=== PATIENT | male | born 1955 | race Caucasian/White ===

== ENCOUNTER 2018-02-20 12:26 | Emergency (ER) | payer MEDICARE, MEDICAID ==
[~2018-02-20] VITALS: Ht 182.9 cm; Wt 79.5 kg
[2018-02-20 13:06] VITALS: BP 115/67
[2018-02-20] MEDS ORDERED: PERM60CR19 TP (13:24)
== END 2018-02-20 13:51 | disposition home or self-care (01) ==
LOC: ER 12:27
DX: S80.862A Insect bite (nonvenomous), left lower leg, initial encounter (principal); S80.861A Insect bite (nonvenomous), right lower leg, initial encounter; S60.562A Insect bite (nonvenomous) of left hand, initial encounter; S60.561A Insect bite (nonvenomous) of right hand, initial encounter; F17.200 Nicotine dependence, unspecified, uncomplicated; Z59.0 Homelessness; Z79.899 Other long term (current) drug therapy; W57.XXXA Bitten or stung by nonvenomous insect and other nonvenomous arthropods, initial encounter; Y93.89 Activity, other specified; Y92.89 Other specified places as the place of occurrence of the external cause; Y99.8 Other external cause status
CPT/HCPCS: 99282; 99283

== ENCOUNTER 2018-02-26 17:34 | Inpatient (IN) | payer MEDICARE, MEDICAID ==
[~2018-02-26] VITALS: Ht 182.9 cm; Wt 86.4 kg
[~2018-02-26 17:34] MED LIST: PERM60CR19 TP
[2018-02-26] MEDS ORDERED: normal saline 1000ML IV soln IV ONE (18:50)
[2018-02-26] MEDS ORDERED: piperacillin/tazo 3.375gm/50ml 50 ML IV ONE (18:50)
[2018-02-26] MEDS ORDERED: vancomycin/NS 1 GM ADD-VANTAGE 250 ML IV ONE (18:50)
[2018-02-26] MEDS ORDERED: LIDOcaine 1.5% w/epinephrine 1:200,000 5ml ampul IJ ONE (18:55)
[2018-02-26] MEDS ORDERED: fentaNYL/PF 50MCG/1 ML 2ML syringe IV ONE (18:55)
[2018-02-26] MEDS ORDERED: ketorolac trometh. 30mg/ml inj. IV ONE (18:55)
[2018-02-26] MEDS ORDERED: TETanus/Pertussis (Acell)/Diphther VAC/PF (Tdap-Adult) 0.5ml syringe IM ONE (18:55)
[2018-02-26] MEDS ORDERED: LIDOcaine 1% w/epiNEPHrine 1:200,000 30ml vial ONE (18:58)
[2018-02-26] MEDS ORDERED: LIDOcaine 1% w/EPI 1:100,000 30ml vial (MDV) IJ ONE (19:10)
[2018-02-26 19:17] LABS: BASOPHILS % (AUTO) 0 % (0-1); EOSINOPHILS # (AUTO) 0.3 X10'3 (0-0.9); EOSINOPHILS % (AUTO) 1.2 % (0-6); HEMATOCRIT 38.6 % (42.0-52.0); HEMOGLOBIN 12.9 g/dl (14.0-17.9); LYMPHOCYTES # (AUTO) 0.8 X10'3 (1.1-4.8); LYMPHOCYTES % (AUTO) 2.6 % (21-51); MEAN CORPUSCULAR HEMOGLOBIN 31.1 PG (27.0-31.0); MEAN CORPUSCULAR HGB CONC 33.3 % (33.0-36.5); MEAN CORPUSCULAR VOLUME 93.6 FL (78-98); MEAN PLATELET VOLUME 6.7 FL (7.4-10.4); MONOCYTES # (AUTO) 1.5 X10'3 (0-0.9); MONOCYTES % (AUTO) 5.2 % (2-12); NEUTROPHILS # (AUTO) 26.6 X10'3 (1.8-7.7); PLATELET COUNT 413 X10'3 (140-440); RED BLOOD COUNT 4.13 X10'6 (4.70-6.10); RED CELL DISTRIBUTION WIDTH 15.3 % (11.5-14.5)
[2018-02-26 19:23] LABS: WHITE BLOOD COUNT 29.3 X10'3 (4.5-11.0)
[2018-02-26 19:32] LABS: INR 1.2 INR; PARTIAL THROMBOPLASTIN TIME 30 SECONDS (22-32); PROTHROMBIN TIME 11.7 SECONDS (9.0-12.0)
[2018-02-26 19:33] LABS: ALANINE AMINOTRANSFERASE 33 U/L (12-78); ALBUMIN 2.3 G/DL (3.4-5.0); ALBUMIN/GLOBULIN RATIO 0.5 (1.1-1.5); ALKALINE PHOSPHATASE 114 IU/L (46-116); ANION GAP 7 (8-16); ASPARTATE AMINO TRANSFERASE 52 U/L (10-37); BILIRUBIN,TOTAL 0.7 MG/DL (0.1-1.0); BLOOD UREA NITROGEN 7 MG/DL (7-18); BUN/CREATININE RATIO 8.6 (5.4-32.0); CHLORIDE 90 MMOL/L (99-107); CREATININE 0.81 MG/DL (0.60-1.10); GLUCOSE 136 MG/DL (70-104); MAGNESIUM 1.9 MG/DL (1.5-2.4); POTASSIUM 3.4 MMOL/L (3.5-5.1); SODIUM 125 MMOL/L (135-145); TOTAL CARBON DIOXIDE 28.3 MMOL/L (24-32); eGFR > 90 ML/MIN
[2018-02-26] MEDS ORDERED: iohexol 300mg/ml 100ml inj. ONE (19:41)
[2018-02-26] MEDS ORDERED: NO HOME MEDS (20:05)
[2018-02-26 20:17] LABS: CLARITY,URINE CLEAR (Clear); COLOR,URINE YELLOW (Yellow); GLUCOSE, URINE NEGATIVE (Neg); KETONES,URINE NEGATIVE (Neg); LEUKOCYTE ESTERASE ,URINE TRACE (Neg); NITRITES, URINE NEGATIVE (Neg); OCCULT BLOOD,URINE LARGE (Neg); PROTEIN,URINE NEGATIVE (Neg)
[2018-02-26 20:20] LABS: UA COLLECTION TYPE CLN CATCH MIDSTREAM
[2018-02-26 20:27] LABS: URINE AMPHETAMINE SCREEN POSITIVE (Neg); URINE BARBITUATE SCREEN NEGATIVE (Neg); URINE BENZODIAZEPINES SCREEN NEGATIVE (Neg); URINE CANNABINOID SCREEN POSITIVE (Neg); URINE COCAINE SCREEN NEGATIVE (Neg); URINE METHADONE SCREEN NEGATIVE (Neg); URINE OPIATE SCREEN NEGATIVE (Neg); URINE PHENCYCLIDINE SCREEN NEGATIVE (Neg)
[2018-02-26 20:35] LABS: BACTERIA,URINE FEW /HPF (Neg); WBC,URINE 0-4 /HPF (0-4)
[2018-02-26 20:36] LABS: SQUAMOUS EPITHELIAL CELL,UR FEW /LPF (FEW)
[2018-02-26] MEDS ORDERED: temazepam 15mg capsule PO PRN (21:00)
[2018-02-26 21:05] LABS: PLATELET ESTIMATE NORMAL; TOTAL CELLS COUNTED 100
[2018-02-26] MEDS ORDERED: HYDROmorphone 1 mg/ml syringe IV PRN (21:15)
[2018-02-26] MEDS ORDERED: mag hydrox/Alum hydrox/simeth 30ml oral suspension PO PRN (21:15)
[2018-02-26] MEDS ORDERED: diphenhydrAMINE 50 mg/ml inj IV PRN (21:15)
[2018-02-26] MEDS ORDERED: magnesium hydroxide 30ml (MOM) UD suspension PO PRN (21:15)
[2018-02-26] MEDS ORDERED: acetaminophen 650mg rectal suppository RC PRN (21:15)
[2018-02-26] MEDS ORDERED: ondansetron/PF 4mg/2ml inj IV PRN (21:15)
[2018-02-26] MEDS ORDERED: bisacodyl 10mg suppository rectal RC PRN (21:15)
[2018-02-26] MEDS ORDERED: metoclopramide 5 mg/ml inj IV PRN (21:15)
[2018-02-26] MEDS ORDERED: morphine 2 MG/ML inj. syringe IV PRN ×2 (21:15)
[2018-02-26] MEDS ORDERED: acetaminophen 325mg tablet PO PRN ×2 (21:15)
[2018-02-26] MEDS ORDERED: potassium Cl 20 mEq SR tablet PO PRN (21:20)
[2018-02-26] MEDS ORDERED: Permethrin Cream 60gm TP ONE (21:20)
[2018-02-26 21:47] LABS: PHOSPHORUS 3.2 MG/DL (2.3-4.5)
[2018-02-26 22:15] VITALS: BP 103/58
[2018-02-26] MEDS: potassium Cl 20mEq in NS 1,000 ML IV SCH (22:55)
[2018-02-27] MEDS: piperacillin/tazo 4.5gm/100ml 100 ML IV SCH ×3 (05:05→19:44)
[2018-02-27 06:06] LABS: BASOPHILS % (AUTO) 0 % (0-1); EOSINOPHILS # (AUTO) 0.5 X10'3 (0-0.9); EOSINOPHILS % (AUTO) 1.8 % (0-6); HEMATOCRIT 34.8 % (42.0-52.0); HEMOGLOBIN 11.5 g/dl (14.0-17.9); LYMPHOCYTES # (AUTO) 0.8 X10'3 (1.1-4.8); MEAN CORPUSCULAR HEMOGLOBIN 31.2 PG (27.0-31.0); MEAN CORPUSCULAR VOLUME 94.7 FL (78-98); MEAN PLATELET VOLUME 7.1 FL (7.4-10.4); MONOCYTES # (AUTO) 1.2 X10'3 (0-0.9); MONOCYTES % (AUTO) 4.4 % (2-12); NEUTROPHILS # (AUTO) 24.7 X10'3 (1.8-7.7); NEUTROPHILS % (AUTO) 90.8 % (42-75); PLATELET COUNT 369 X10'3 (140-440); RED BLOOD COUNT 3.68 X10'6 (4.70-6.10); RED CELL DISTRIBUTION WIDTH 15.7 % (11.5-14.5)
[2018-02-27 06:10] LABS: WHITE BLOOD COUNT 27.3 X10'3 (4.5-11.0)
[2018-02-27 06:22] LABS: ANISOCYTOSIS 1+; PLATELET ESTIMATE NORMAL; TOTAL CELLS COUNTED 100; TOXIC GRANULATION 1+
[2018-02-27 06:26] LABS: ALANINE AMINOTRANSFERASE 28 U/L (12-78); ALBUMIN 1.8 G/DL (3.4-5.0); ALBUMIN/GLOBULIN RATIO 0.4 (1.1-1.5); ALKALINE PHOSPHATASE 111 IU/L (46-116); ANION GAP 7 (8-16); ASPARTATE AMINO TRANSFERASE 50 U/L (10-37); BILIRUBIN,TOTAL 0.8 MG/DL (0.1-1.0); BLOOD UREA NITROGEN 8 MG/DL (7-18); BUN/CREATININE RATIO 11.8 (5.4-32.0); CALCIUM 7.6 MG/DL (8.5-10.1); CHLORIDE 100 MMOL/L (99-107); CREATININE 0.68 MG/DL (0.60-1.10); GLUCOSE 90 MG/DL (70-104); POTASSIUM 3.3 MMOL/L (3.5-5.1); SODIUM 133 MMOL/L (135-145); TOTAL PROTEIN 5.9 G/DL (6.4-8.2); eGFR > 90 ML/MIN
[2018-02-27 06:44] VITALS: BP 103/70
[2018-02-27] MEDS: potassium Cl 20mEq in NS 1,000 ML IV SCH ×2 (07:11→11:54)
[2018-02-27] MEDS: pantoprazole 40mg Tablet.DR PO SCH (07:43)
[2018-02-27] MEDS: docusate sod 100mg capsule PO SCH ×2 (07:43→19:43)
[2018-02-27] MEDS: HYDROcodone/acetaminophen 10/325mg tab PO PRN ×2 (07:50→19:44)
[2018-02-27] MEDS ORDERED: vancomycin/NS 1 GM ADD-VANTAGE 250 ML IV SCH (08:00)
[2018-02-27] MEDS: potassium Cl 20 mEq SR tablet PO PRN ×2 (08:00→19:43)
[2018-02-27 10:58] VITALS: BP 94/55
[2018-02-27 12:11] VITALS: BP 106/56
[2018-02-27] MEDS ORDERED: Ivermectin 3mg tablet PO SCH (15:35)
[2018-02-27] MEDS ORDERED: TETANUS IMMUNE GLOBULIN 250 UNIT IMVAC ONE (15:40)
[2018-02-27 18:00] VITALS: BP 114/64
[2018-02-27] MEDS: lactobacillus rhamnosus 10,000 MMU CELLS/CAPSULE PO SCH (19:43)
[2018-02-27] MEDS: vancomycin inj 1,250 MG in normal saline 250ml IV soln 250 ML IV SCH (19:44)
[2018-02-27] MEDS: diphenhydrAMINE 25mg capsule PO PRN (21:16)
[2018-02-27] MEDS: Ivermectin 3mg tablet PO SCH (21:17)
[2018-02-27 22:00] VITALS: BP 109/63
[2018-02-28] MEDS: HYDROcodone/acetaminophen 10/325mg tab PO PRN ×5 (02:12→23:49)
[2018-02-28] MEDS: potassium Cl 20 mEq SR tablet PO PRN (02:12)
[2018-02-28] MEDS: potassium Cl 20mEq in NS 1,000 ML IV SCH ×2 (02:13→13:19)
[2018-02-28] MEDS: piperacillin/tazo 4.5gm/100ml 100 ML IV SCH ×3 (04:22→20:16)
[2018-02-28] MEDS: diphenhydrAMINE 25mg capsule PO PRN ×2 (04:22→20:15)
[2018-02-28 06:11] LABS: BASOPHILS % (AUTO) 0.1 % (0-1); EOSINOPHILS # (AUTO) 0.4 X10'3 (0-0.9); EOSINOPHILS % (AUTO) 2.3 % (0-6); HEMATOCRIT 34.1 % (42.0-52.0); HEMOGLOBIN 11.4 g/dl (14.0-17.9); LYMPHOCYTES # (AUTO) 1.1 X10'3 (1.1-4.8); LYMPHOCYTES % (AUTO) 7.1 % (21-51); MEAN CORPUSCULAR HEMOGLOBIN 31.7 PG (27.0-31.0); MEAN CORPUSCULAR HGB CONC 33.3 % (33.0-36.5); MEAN CORPUSCULAR VOLUME 95.3 FL (78-98); MONOCYTES # (AUTO) 0.7 X10'3 (0-0.9); MONOCYTES % (AUTO) 4.7 % (2-12); NEUTROPHILS # (AUTO) 13.1 X10'3 (1.8-7.7); NEUTROPHILS % (AUTO) 85.8 % (42-75); PLATELET COUNT 357 X10'3 (140-440); RED BLOOD COUNT 3.58 X10'6 (4.70-6.10); RED CELL DISTRIBUTION WIDTH 15.7 % (11.5-14.5); WHITE BLOOD COUNT 15.3 X10'3 (4.5-11.0)
[2018-02-28 06:31] LABS: ALANINE AMINOTRANSFERASE 23 U/L (12-78); ALBUMIN 1.5 G/DL (3.4-5.0); ALBUMIN/GLOBULIN RATIO 0.4 (1.1-1.5); ALKALINE PHOSPHATASE 104 IU/L (46-116); ANION GAP 5 (8-16); ASPARTATE AMINO TRANSFERASE 33 U/L (10-37); BILIRUBIN,TOTAL 0.4 MG/DL (0.1-1.0); BLOOD UREA NITROGEN 13 MG/DL (7-18); BUN/CREATININE RATIO 14.9 (5.4-32.0); CALCIUM 7.5 MG/DL (8.5-10.1); CHLORIDE 102 MMOL/L (99-107); CREATININE 0.87 MG/DL (0.60-1.10); GLUCOSE 113 MG/DL (70-104); SODIUM 136 MMOL/L (135-145); TOTAL CARBON DIOXIDE 29.2 MMOL/L (24-32); TOTAL PROTEIN 5.4 G/DL (6.4-8.2); eGFR 90 ML/MIN
[2018-02-28 07:00] VITALS: BP 100/62
[2018-02-28] MEDS: vancomycin inj 1,250 MG in normal saline 250ml IV soln 250 ML IV SCH ×2 (07:35→20:22)
[2018-02-28] MEDS: lactobacillus rhamnosus 10,000 MMU CELLS/CAPSULE PO SCH ×2 (07:46→20:15)
[2018-02-28] MEDS: pantoprazole 40mg Tablet.DR PO SCH (07:46)
[2018-02-28] MEDS: docusate sod 100mg capsule PO SCH ×2 (07:47→20:15)
[2018-02-28] MEDS ORDERED: pneumococcal 23-VAL P-sac vacc 25 mcg/0.5ml vial IMVAC ONE (10:00)
[2018-02-28 10:57] VITALS: BP 112/68
[2018-02-28] MEDS: HYDROmorphone 1 mg/ml syringe IV PRN (14:56)
[2018-02-28] MEDS ORDERED: haloperidol lactate 5mg/ml inj IM PRN (16:15)
[2018-02-28] MEDS ORDERED: dextrose 50%-water 50ml dispensing syringe IV PRN (16:15)
[2018-02-28] MEDS ORDERED: haloperidol 5mg tablet PO PRN (16:15)
[2018-02-28] MEDS ORDERED: LORazepam 2 mg/ml vial IV PRN (16:15)
[2018-02-28 17:00] VITALS: BP 108/70
[2018-02-28] MEDS: folic acid 1mg tablet PO SCH (17:49)
[2018-02-28] MEDS: thiamine 100mg tablet PO SCH (17:49)
[2018-02-28] MEDS: multivitamins, therapeutics tablet PO SCH (17:49)
[2018-02-28 22:00] VITALS: BP 103/73
[2018-03-01] MEDS: piperacillin/tazo 4.5gm/100ml 100 ML IV SCH ×2 (03:34→12:18)
[2018-03-01] MEDS: HYDROcodone/acetaminophen 10/325mg tab PO PRN ×4 (03:35→22:05)
[2018-03-01 06:00] VITALS: BP 143/75
[2018-03-01] MEDS ORDERED: VANCOMYCIN LEVEL IV ONE ×2 (07:30→19:30)
[2018-03-01] MEDS: pantoprazole 40mg Tablet.DR PO SCH (07:49)
[2018-03-01] MEDS: lactobacillus rhamnosus 10,000 MMU CELLS/CAPSULE PO SCH ×2 (07:49→20:00)
[2018-03-01] MEDS: docusate sod 100mg capsule PO SCH ×2 (07:49→20:00)
[2018-03-01] MEDS: folic acid 1mg tablet PO SCH (07:49)
[2018-03-01] MEDS: multivitamins, therapeutics tablet PO SCH (07:49)
[2018-03-01] MEDS: thiamine 100mg tablet PO SCH (07:49)
[2018-03-01] MEDS: vancomycin inj 1,250 MG in normal saline 250ml IV soln 250 ML IV SCH (07:51)
[2018-03-01 09:39] LABS: BASOPHILS % (AUTO) 0.3 % (0-1); EOSINOPHILS # (AUTO) 0.2 X10'3 (0-0.9); HEMOGLOBIN 11.8 g/dl (14.0-17.9); LYMPHOCYTES # (AUTO) 1.1 X10'3 (1.1-4.8); LYMPHOCYTES % (AUTO) 15.3 % (21-51); MEAN CORPUSCULAR HGB CONC 31.9 % (33.0-36.5); MEAN PLATELET VOLUME 7.1 FL (7.4-10.4); MONOCYTES # (AUTO) 0.4 X10'3 (0-0.9); MONOCYTES % (AUTO) 5.9 % (2-12); NEUTROPHILS # (AUTO) 5.6 X10'3 (1.8-7.7); NEUTROPHILS % (AUTO) 75.5 % (42-75); PLATELET COUNT 401 X10'3 (140-440); RED BLOOD COUNT 3.82 X10'6 (4.70-6.10); RED CELL DISTRIBUTION WIDTH 15.9 % (11.5-14.5); WHITE BLOOD COUNT 7.4 X10'3 (4.5-11.0)
[2018-03-01 10:00] VITALS: BP 117/59
[2018-03-01 10:00] LABS: ALANINE AMINOTRANSFERASE 31 U/L (12-78); ALBUMIN 1.6 G/DL (3.4-5.0); ALBUMIN/GLOBULIN RATIO 0.4 (1.1-1.5); ALKALINE PHOSPHATASE 153 IU/L (46-116); ANION GAP 6 (8-16); ASPARTATE AMINO TRANSFERASE 64 U/L (10-37); BILIRUBIN,TOTAL 0.4 MG/DL (0.1-1.0); BLOOD UREA NITROGEN 10 MG/DL (7-18); BUN/CREATININE RATIO 11.6 (5.4-32.0); CALCIUM 7.7 MG/DL (8.5-10.1); CHLORIDE 100 MMOL/L (99-107); CREATININE 0.86 MG/DL (0.60-1.10); GLUCOSE 108 MG/DL (70-104); POTASSIUM 4.1 MMOL/L (3.5-5.1); SODIUM 135 MMOL/L (135-145); TOTAL CARBON DIOXIDE 29.2 MMOL/L (24-32); eGFR > 90 ML/MIN
[2018-03-01] MEDS: HYDROmorphone 1 mg/ml syringe IV PRN (15:00)
[2018-03-01 18:00] VITALS: BP 126/66
[2018-03-01 22:00] VITALS: BP 127/76
[2018-03-02] VITALS (15 sets, daily range): BP systolic 106–152; BP diastolic 41–89
[2018-03-02] MEDS: HYDROcodone/acetaminophen 5mg/325mg tablet PO PRN (04:35)
[2018-03-02 06:01] LABS: BASOPHILS % (AUTO) 0.3 % (0-1); EOSINOPHILS # (AUTO) 0.2 X10'3 (0-0.9); EOSINOPHILS % (AUTO) 2.7 % (0-6); HEMATOCRIT 36.6 % (42.0-52.0); HEMOGLOBIN 12.1 g/dl (14.0-17.9); LYMPHOCYTES # (AUTO) 1.2 X10'3 (1.1-4.8); LYMPHOCYTES % (AUTO) 15.4 % (21-51); MEAN CORPUSCULAR HEMOGLOBIN 31.1 PG (27.0-31.0); MEAN CORPUSCULAR VOLUME 94.3 FL (78-98); MEAN PLATELET VOLUME 6.8 FL (7.4-10.4); MONOCYTES # (AUTO) 0.6 X10'3 (0-0.9); MONOCYTES % (AUTO) 7.7 % (2-12); NEUTROPHILS # (AUTO) 5.8 X10'3 (1.8-7.7); NEUTROPHILS % (AUTO) 73.9 % (42-75); PLATELET COUNT 422 X10'3 (140-440); RED BLOOD COUNT 3.88 X10'6 (4.70-6.10); RED CELL DISTRIBUTION WIDTH 15.6 % (11.5-14.5); WHITE BLOOD COUNT 7.9 X10'3 (4.5-11.0)
[2018-03-02 06:14] LABS: ALANINE AMINOTRANSFERASE 25 U/L (12-78); ALBUMIN 1.8 G/DL (3.4-5.0); ALBUMIN/GLOBULIN RATIO 0.4 (1.1-1.5); ALKALINE PHOSPHATASE 132 IU/L (46-116); ANION GAP 3 (8-16); ASPARTATE AMINO TRANSFERASE 35 U/L (10-37); BILIRUBIN,TOTAL 0.3 MG/DL (0.1-1.0); BLOOD UREA NITROGEN 10 MG/DL (7-18); BUN/CREATININE RATIO 11.8 (5.4-32.0); CALCIUM 8.3 MG/DL (8.5-10.1); CHLORIDE 100 MMOL/L (99-107); CREATININE 0.85 MG/DL (0.60-1.10); GLUCOSE 116 MG/DL (70-104); POTASSIUM 4.7 MMOL/L (3.5-5.1); SODIUM 135 MMOL/L (135-145); TOTAL CARBON DIOXIDE 32.5 MMOL/L (24-32); TOTAL PROTEIN 6.4 G/DL (6.4-8.2); eGFR > 90 ML/MIN
[2018-03-02] MEDS: multivitamins, therapeutics tablet PO SCH (07:31)
[2018-03-02] MEDS: thiamine 100mg tablet PO SCH (07:32)
[2018-03-02] MEDS: lactobacillus rhamnosus 10,000 MMU CELLS/CAPSULE PO SCH ×2 (07:32→20:55)
[2018-03-02] MEDS: docusate sod 100mg capsule PO SCH ×2 (07:32→20:56)
[2018-03-02] MEDS: levoFLOXACIN 500mg tablet PO SCH ×2 (07:32→11:00)
[2018-03-02] MEDS: folic acid 1mg tablet PO SCH (07:32)
[2018-03-02] MEDS: pantoprazole 40mg Tablet.DR PO SCH (07:32)
[2018-03-02] MEDS: HYDROcodone/acetaminophen 10/325mg tab PO PRN ×2 (11:12→17:23)
[2018-03-02] MEDS ORDERED: sevoflurane 250ml liquid IH ONE (15:56)
[2018-03-02] MEDS ORDERED: ringers solution, lacted 1,000 ML IV SCH (15:57)
[2018-03-02] MEDS ORDERED: fentaNYL /PF 50mcg/ml 5ml ampule ONE (15:59)
[2018-03-02] MEDS ORDERED: midazolam 2 mg/2 ml injection ONE (15:59)
[2018-03-02] MEDS ORDERED: morphine 4 MG/ML inj SYRINge IV PRN ×2 (16:00)
[2018-03-02] MEDS ORDERED: ondansetron/PF 4mg/2ml inj IV PRN (16:00)
[2018-03-02] MEDS ORDERED: proCHLORperazine 10 MG/2 ml inj IV PRN (16:00)
[2018-03-02] MEDS ORDERED: meperidine/PF 25mg/ml syringe IV PRN ×3 (16:00)
[2018-03-02] MEDS ORDERED: propofol inj 20 ML IV ONE (16:06)
[2018-03-02] MEDS ORDERED: LIDOcaine 2% (20mg/ml) 5ml vial ONE (16:06)
[2018-03-02] MEDS ORDERED: LORazepam 1 MG tablet PO PRN (16:15)
[2018-03-02] MEDS ORDERED: LORazepam 2 mg/ml vial IV PRN (16:15)
[2018-03-02] MEDS ORDERED: ondansetron/PF 4mg/2ml inj ONE (16:46)
[2018-03-02] MEDS: piperacillin/tazo 3.375gm/50ml 50 ML IV SCH (20:56)
[2018-03-03] MEDS: piperacillin/tazo 3.375gm/50ml 50 ML IV SCH ×4 (01:43→19:44)
[2018-03-03] MEDS: HYDROcodone/acetaminophen 10/325mg tab PO PRN ×5 (01:54→19:45)
[2018-03-03 02:00] VITALS: BP 142/79
[2018-03-03 06:00] VITALS: BP 155/75
[2018-03-03 06:09] LABS: BASOPHILS % (AUTO) 0.2 % (0-1); EOSINOPHILS # (AUTO) 0.3 X10'3 (0-0.9); HEMATOCRIT 35.8 % (42.0-52.0); HEMOGLOBIN 11.8 g/dl (14.0-17.9); LYMPHOCYTES # (AUTO) 1.1 X10'3 (1.1-4.8); LYMPHOCYTES % (AUTO) 11.3 % (21-51); MEAN CORPUSCULAR HEMOGLOBIN 31.3 PG (27.0-31.0); MEAN CORPUSCULAR HGB CONC 32.9 % (33.0-36.5); MEAN CORPUSCULAR VOLUME 95.1 FL (78-98); MONOCYTES # (AUTO) 0.8 X10'3 (0-0.9); MONOCYTES % (AUTO) 8.6 % (2-12); NEUTROPHILS # (AUTO) 7.2 X10'3 (1.8-7.7); NEUTROPHILS % (AUTO) 76.9 % (42-75); PLATELET COUNT 429 X10'3 (140-440); RED BLOOD COUNT 3.77 X10'6 (4.70-6.10); RED CELL DISTRIBUTION WIDTH 15.7 % (11.5-14.5); WHITE BLOOD COUNT 9.3 X10'3 (4.5-11.0)
[2018-03-03 06:35] LABS: ALBUMIN 1.6 G/DL (3.4-5.0); ANION GAP 6 (8-16); BILIRUBIN,TOTAL 0.2 MG/DL (0.1-1.0); BLOOD UREA NITROGEN 11 MG/DL (7-18); BUN/CREATININE RATIO 11.7 (5.4-32.0); CALCIUM 7.8 MG/DL (8.5-10.1); CHLORIDE 100 MMOL/L (99-107); CREATININE 0.94 MG/DL (0.60-1.10); GLUCOSE 133 MG/DL (70-104); POTASSIUM 4.2 MMOL/L (3.5-5.1); SODIUM 135 MMOL/L (135-145); TOTAL CARBON DIOXIDE 29.3 MMOL/L (24-32); TOTAL PROTEIN 6.2 G/DL (6.4-8.2); eGFR 82 ML/MIN
[2018-03-03 06:36] LABS: ALANINE AMINOTRANSFERASE 20 U/L (12-78); ALBUMIN/GLOBULIN RATIO 0.3 (1.1-1.5); ALKALINE PHOSPHATASE 119 IU/L (46-116); ASPARTATE AMINO TRANSFERASE 24 U/L (10-37)
[2018-03-03] MEDS: lactobacillus rhamnosus 10,000 MMU CELLS/CAPSULE PO SCH ×2 (07:35→19:44)
[2018-03-03] MEDS: docusate sod 100mg capsule PO SCH ×2 (07:35→19:44)
[2018-03-03] MEDS: pantoprazole 40mg Tablet.DR PO SCH (07:35)
[2018-03-03] MEDS: thiamine 100mg tablet PO SCH (07:35)
[2018-03-03] MEDS: multivitamins, therapeutics tablet PO SCH (07:35)
[2018-03-03] MEDS: folic acid 1mg tablet PO SCH (07:36)
[2018-03-03 10:00] VITALS: BP 126/79
[2018-03-03 17:00] VITALS: BP 135/71
[2018-03-03 22:00] VITALS: BP 117/68
[2018-03-04] MEDS: HYDROcodone/acetaminophen 10/325mg tab PO PRN ×3 (01:43→10:16)
[2018-03-04] MEDS: piperacillin/tazo 3.375gm/50ml 50 ML IV SCH ×4 (01:43→19:57)
[2018-03-04 06:00] VITALS: BP 126/71
[2018-03-04] MEDS: pantoprazole 40mg Tablet.DR PO SCH (08:09)
[2018-03-04] MEDS: docusate sod 100mg capsule PO SCH ×2 (08:09→19:57)
[2018-03-04] MEDS: folic acid 1mg tablet PO SCH (08:09)
[2018-03-04] MEDS: thiamine 100mg tablet PO SCH (08:09)
[2018-03-04] MEDS: lactobacillus rhamnosus 10,000 MMU CELLS/CAPSULE PO SCH ×2 (08:09→19:57)
[2018-03-04] MEDS: multivitamins, therapeutics tablet PO SCH (08:09)
[2018-03-04 10:00] VITALS: BP 106/55
[2018-03-04] MEDS ORDERED: LORazepam 2 mg/ml vial IV PRN (16:15)
[2018-03-04] MEDS ORDERED: LORazepam 1 MG tablet PO PRN (16:15)
[2018-03-04 18:00] VITALS: BP 145/66
[2018-03-04] MEDS: HYDROcodone/acetaminophen 5mg/325mg tablet PO PRN (19:58)
[2018-03-04 21:38] VITALS: BP 109/70
[2018-03-05] MEDS: piperacillin/tazo 3.375gm/50ml 50 ML IV SCH ×2 (01:37→08:54)
[2018-03-05 05:00] VITALS: BP 114/72
[2018-03-05] MEDS ORDERED: Permethrin Cream 60gm TP PRN (08:00)
[2018-03-05] MEDS: docusate sod 100mg capsule PO SCH ×2 (08:54→19:44)
[2018-03-05] MEDS: folic acid 1mg tablet PO SCH (08:54)
[2018-03-05] MEDS: thiamine 100mg tablet PO SCH (08:54)
[2018-03-05] MEDS: pantoprazole 40mg Tablet.DR PO SCH (08:55)
[2018-03-05] MEDS: lactobacillus rhamnosus 10,000 MMU CELLS/CAPSULE PO SCH ×2 (08:55→19:44)
[2018-03-05] MEDS: multivitamins, therapeutics tablet PO SCH (08:55)
[2018-03-05] MEDS: HYDROcodone/acetaminophen 10/325mg tab PO PRN ×2 (09:04→19:47)
[2018-03-05 10:00] VITALS: BP 133/64
[2018-03-05] MEDS: ceFAZolin 1GM/D5W- ADD-VANTAGE 50 ML IV SCH (17:38)
[2018-03-05 18:00] VITALS: BP 141/81
[2018-03-05 22:00] VITALS: BP 130/72
[2018-03-06] MEDS: ceFAZolin 1GM/D5W- ADD-VANTAGE 50 ML IV SCH (00:36)
[2018-03-06 05:00] VITALS: BP 125/77
[2018-03-06] MEDS: pantoprazole 40mg Tablet.DR PO SCH (07:30)
[2018-03-06] MEDS ORDERED: levoFLOXACIN-Levaquin 500mg/D5 100 ML IV SCH (08:25)
[2018-03-06] MEDS: folic acid 1mg tablet PO SCH (08:45)
[2018-03-06] MEDS: thiamine 100mg tablet PO SCH (08:45)
[2018-03-06] MEDS: lactobacillus rhamnosus 10,000 MMU CELLS/CAPSULE PO SCH (08:45)
[2018-03-06] MEDS: docusate sod 100mg capsule PO SCH (08:45)
[2018-03-06] MEDS: multivitamins, therapeutics tablet PO SCH (08:45)
[2018-03-06 10:00] VITALS: BP 172/69
[2018-03-06] MEDS: HYDROcodone/acetaminophen 10/325mg tab PO PRN ×2 (10:10→17:10)
[2018-03-06] MEDS ORDERED: COL100C PO (11:52)
[2018-03-06] MEDS ORDERED: HYDR-3972 PO (11:52)
[2018-03-06] MEDS ORDERED: FOLI1TAB16 PO (11:52)
[2018-03-06] MEDS ORDERED: LEVO500T2 PO (11:52)
[2018-03-06] MEDS ORDERED: THI100T PO (11:52)
[2018-03-06] MEDS: Ivermectin 3mg tablet PO SCH (17:17)
== END 2018-03-06 18:10 | disposition home health service (06) | DRG 853 ==
LOC: ER 17:34 → ORTHO 4S 22:31 → CMPBEDREQ 02-27 00:18 → ORTHO 4S 03-06 09:25
PROVIDERS: ADMIT Family Medicine; ATTEND Internal Medicine
PROC: 0X950ZZ Drainage of Left Axilla, Open Approach (ICD-10-PCS; principal; 2018-02-26)
PROC: BW241ZZ Computerized Tomography (CT Scan) of Chest and Abdomen using Low Osmolar Contrast (ICD-10-PCS; 2018-02-26)
PROC: 3E02340 Introduction of Influenza Vaccine into Muscle, Percutaneous Approach (ICD-10-PCS; 2018-02-28)
PROC: 3E0234Z Introduction of Serum, Toxoid and Vaccine into Muscle, Percutaneous Approach (ICD-10-PCS; 2018-02-28)
PROC: 0JBF0ZZ Excision of Left Upper Arm Subcutaneous Tissue and Fascia, Open Approach (ICD-10-PCS; 2018-03-02)
DX: A41.9 Sepsis, unspecified organism (principal); E43 Unspecified severe protein-calorie malnutrition; E87.1 Hypo-osmolality and hyponatremia; L02.412 Cutaneous abscess of left axilla; L03.112 Cellulitis of left axilla; B85.1 Pediculosis due to Pediculus humanus corporis; F10.10 Alcohol abuse, uncomplicated; B95.4 Other streptococcus as the cause of diseases classified elsewhere; F15.10 Other stimulant abuse, uncomplicated; E86.0 Dehydration; E87.6 Hypokalemia; B86 Scabies; F17.210 Nicotine dependence, cigarettes, uncomplicated; Z59.0 Homelessness; Z79.899 Other long term (current) drug therapy; Z68.25 Body mass index [BMI] 25.0-25.9, adult; Z71.6 Tobacco abuse counseling; Z71.41 Alcohol abuse counseling and surveillance of alcoholic
CPT/HCPCS: 10060; 36415; 71045; 71260; 80053; 80305; 81001; 82948; 83605; 83735; 83880; 84100; 84145; 85025; 85610; 85730; 87040; 87070; 87075; 87077; 87088; 87186; 90471; 90715; 90732; 93005; 96365; 96368; 96375; 99285; A6253; A6446; A7000; G0378; J0690; J1170; J1670; J1885; J1956; J2001; J2250; J2405; J2543; J2704; J3010; J3370; J3490; J7030; J7120; Q0163; Q2037; Q9967

== ENCOUNTER 2018-03-08 13:00 | Outpatient (CLI) | payer MEDICARE, MEDICAID ==
[~2018-03-08 13:00] MED LIST changes: +COL100C PO; +FOLI1TAB16 PO; +HYDR-3972 PO; +LEVO500T2 PO; +NO HOME MEDS; +THI100T PO
== END 2018-03-08 14:00 | disposition home or self-care (01) ==
LOC: WOUND CARE 13:00
PROVIDERS: ATTEND Surgery
DX: L98.492 Non-pressure chronic ulcer of skin of other sites with fat layer exposed (principal); L02.411 Cutaneous abscess of right axilla; F10.10 Alcohol abuse, uncomplicated; F17.210 Nicotine dependence, cigarettes, uncomplicated; F15.10 Other stimulant abuse, uncomplicated; Z68.25 Body mass index [BMI] 25.0-25.9, adult; Z79.899 Other long term (current) drug therapy; Z71.6 Tobacco abuse counseling
CPT/HCPCS: 97605; A4456

== ENCOUNTER 2018-03-12 09:38 | Outpatient (CLI) | payer MEDICARE, MEDICAID ==
[~2018-03-12 09:38] MED LIST changes: -NO HOME MEDS; -PERM60CR19 TP
== END 2018-03-12 11:48 | disposition home or self-care (01) ==
LOC: WOUND CARE 09:38 → EDSTATUS 10:00 → WOUND CARE 11:48
PROVIDERS: ATTEND Surgery
DX: L98.492 Non-pressure chronic ulcer of skin of other sites with fat layer exposed (principal); L02.411 Cutaneous abscess of right axilla; F10.10 Alcohol abuse, uncomplicated; F17.210 Nicotine dependence, cigarettes, uncomplicated; F15.10 Other stimulant abuse, uncomplicated; Z68.25 Body mass index [BMI] 25.0-25.9, adult; Z79.899 Other long term (current) drug therapy; Z71.6 Tobacco abuse counseling
CPT/HCPCS: 99215; A6266; A6206; A6213

== ENCOUNTER 2018-03-15 12:42 | Emergency (ER) | payer MEDICARE, MEDICAID ==
[~2018-03-15] VITALS: Ht 185.4 cm; Wt 68.0 kg
[2018-03-15 13:00] VITALS: BP 107/68
== END 2018-03-15 13:26 | disposition home or self-care (01) ==
LOC: ER 12:42
DX: L02.412 Cutaneous abscess of left axilla (principal); F17.200 Nicotine dependence, unspecified, uncomplicated; Z79.2 Long term (current) use of antibiotics; Z79.899 Other long term (current) drug therapy
CPT/HCPCS: 99281

== ENCOUNTER 2018-03-15 13:26 | Outpatient (CLI) | payer MEDICARE, MEDICAID | END 2018-03-15 13:47 | disposition home or self-care (01) | LOC: WOUND CARE 13:26 | PROVIDERS: ATTEND Surgery | DX: L98.492 Non-pressure chronic ulcer of skin of other sites with fat layer exposed (principal); L02.411 Cutaneous abscess of right axilla; F10.10 Alcohol abuse, uncomplicated; F17.210 Nicotine dependence, cigarettes, uncomplicated; F15.10 Other stimulant abuse, uncomplicated; Z68.25 Body mass index [BMI] 25.0-25.9, adult; Z79.899 Other long term (current) drug therapy; Z71.6 Tobacco abuse counseling | CPT/HCPCS: 99211; A6021; A6212; A6266 ==

== ENCOUNTER 2018-03-17 14:58 | Emergency (ER) | payer MEDICARE, MEDICAID ==
[~2018-03-17] VITALS: Ht 185.4 cm; Wt 60.0 kg
[2018-03-17 15:00] VITALS: BP 155/90
== END 2018-03-17 16:00 | disposition home or self-care (01) ==
LOC: ER 14:58
DX: L02.412 Cutaneous abscess of left axilla (principal); Z48.00 Encounter for change or removal of nonsurgical wound dressing; Z79.2 Long term (current) use of antibiotics; Z79.899 Other long term (current) drug therapy; Z59.0 Homelessness
CPT/HCPCS: 99281

== ENCOUNTER 2018-03-19 10:24 | Day surgery (SDC) | payer MEDICARE, MEDICAID | END 2018-03-19 11:49 | disposition home or self-care (01) | LOC: WOUND CARE 10:24 | PROVIDERS: ATTEND Surgery | DX: L98.492 Non-pressure chronic ulcer of skin of other sites with fat layer exposed (principal); L02.412 Cutaneous abscess of left axilla; L02.411 Cutaneous abscess of right axilla; F10.10 Alcohol abuse, uncomplicated; F17.210 Nicotine dependence, cigarettes, uncomplicated; F15.10 Other stimulant abuse, uncomplicated; Z68.25 Body mass index [BMI] 25.0-25.9, adult; Z79.899 Other long term (current) drug therapy; Z71.6 Tobacco abuse counseling | CPT/HCPCS: 97597; A6266; A6212 ==

== ENCOUNTER 2018-03-21 09:52 | Day surgery (SDC) | payer MEDICARE, MEDICAID ==
[~2018-03-21 09:52] MED LIST changes: -LEVO500T2 PO
== END 2018-03-21 10:26 | disposition home or self-care (01) ==
LOC: WOUND CARE 09:52
PROVIDERS: ATTEND Surgery
DX: L98.492 Non-pressure chronic ulcer of skin of other sites with fat layer exposed (principal); L02.412 Cutaneous abscess of left axilla; F10.10 Alcohol abuse, uncomplicated; F17.210 Nicotine dependence, cigarettes, uncomplicated; F15.10 Other stimulant abuse, uncomplicated; Z68.25 Body mass index [BMI] 25.0-25.9, adult; Z79.899 Other long term (current) drug therapy; Z71.6 Tobacco abuse counseling
CPT/HCPCS: 97597; A6266; 17250; A6212

== ENCOUNTER 2018-04-05 14:35 | Emergency (ER) | payer MEDICARE, MEDICAID ==
[~2018-04-05] VITALS: Ht 188 cm; Wt 88.6 kg
[2018-04-05 14:42] VITALS: BP 114/77
[2018-04-05] MEDS ORDERED: SULF1TAB49 PO (15:31)
[2018-04-05] MEDS ORDERED: CEPH-572 PO (15:31)
== END 2018-04-05 15:41 | disposition home or self-care (01) ==
LOC: ER 14:36
DX: L03.113 Cellulitis of right upper limb (principal); L03.114 Cellulitis of left upper limb; R23.4 Changes in skin texture; Z79.2 Long term (current) use of antibiotics; Z79.899 Other long term (current) drug therapy; Z59.0 Homelessness
CPT/HCPCS: 99283

== ENCOUNTER 2018-04-10 10:26 | Emergency (ER) | payer MEDICARE, MEDICAID ==
[~2018-04-10] VITALS: Ht 185.4 cm; Wt 73.7 kg
[~2018-04-10 10:26] MED LIST changes: +CEPH-572 PO; +SULF1TAB49 PO
[2018-04-10 10:29] VITALS: BP 127/86
== END 2018-04-10 11:13 | disposition left against medical advice (07) ==
LOC: ER 10:27
DX: M79.89 Other specified soft tissue disorders (principal); Z53.21 Procedure and treatment not carried out due to patient leaving prior to being seen by health care provider

== ENCOUNTER 2018-04-12 11:08 | Emergency (ER) | payer MEDICARE, MEDICAID ==
[~2018-04-12] VITALS: Ht 188 cm; Wt 86.4 kg
[2018-04-12 12:09] VITALS: BP 116/67
== END 2018-04-12 13:02 | disposition left against medical advice (07) ==
LOC: ER 11:09
DX: L02.412 Cutaneous abscess of left axilla (principal); Z53.21 Procedure and treatment not carried out due to patient leaving prior to being seen by health care provider

== ENCOUNTER 2018-05-31 10:56 | Emergency (ER) | payer MEDICAID, MEDICARE ==
[~2018-05-31] VITALS: Ht 185.4 cm; Wt 73.3 kg
[~2018-05-31 10:56] MED LIST changes: -CEPH-572 PO; -SULF1TAB49 PO
[2018-05-31 10:59] VITALS: BP 162/90
== END 2018-05-31 13:01 | disposition home or self-care (01) ==
LOC: ER 10:56
DX: S40.812A Abrasion of left upper arm, initial encounter (principal); G89.29 Other chronic pain; Z59.0 Homelessness; Z79.899 Other long term (current) drug therapy; Z76.0 Encounter for issue of repeat prescription; X58.XXXA Exposure to other specified factors, initial encounter; Y93.89 Activity, other specified; Y92.89 Other specified places as the place of occurrence of the external cause; Y99.8 Other external cause status
CPT/HCPCS: 99281

== ENCOUNTER 2018-06-03 16:23 | Emergency (ER) | payer MEDICARE, OTHER ==
[~2018-06-03] VITALS: Ht 186.7 cm; Wt 84.1 kg
[2018-06-03 16:37] VITALS: BP 160/101
== END 2018-06-03 17:11 | disposition home or self-care (01) ==
LOC: ER 16:23
DX: M79.605 Pain in left leg (principal); Z76.0 Encounter for issue of repeat prescription; Z79.899 Other long term (current) drug therapy; Z59.0 Homelessness
CPT/HCPCS: 99281

== ENCOUNTER 2019-01-31 14:03 | Emergency (ER) | payer MEDICARE, MEDICAID ==
[~2019-01-31] VITALS: Ht 185.4 cm; Wt 72.6 kg
[2019-01-31 14:14] VITALS: BP 144/84
== END 2019-01-31 14:55 | disposition home or self-care (01) ==
LOC: ER 14:05
DX: R45.1 Restlessness and agitation (principal); Z76.0 Encounter for issue of repeat prescription; G89.29 Other chronic pain; Z59.0 Homelessness; Z79.899 Other long term (current) drug therapy
CPT/HCPCS: 99281

== ENCOUNTER 2022-01-24 13:59 | Inpatient (IN) | payer MEDICAID, MEDICARE ==
[~2022-01-24] VITALS: Ht 185.4 cm; Wt 89.0 kg
[~2022-01-24 13:59] MED LIST changes: -FOLI1TAB16 PO; +FOLI1TAB27 PO
[2022-01-24 14:43] LABS: BASOPHILS % (AUTO) 0.1 % (0-1); EOSINOPHILS # (AUTO) 0.1 X10'3 (0-0.9); EOSINOPHILS % (AUTO) 0.8 % (0-6); HEMATOCRIT 44.3 % (42.0-52.0); HEMOGLOBIN 14.8 g/dl (14.0-17.9); LYMPHOCYTES # (AUTO) 1.5 X10'3 (1.1-4.8); LYMPHOCYTES % (AUTO) 8.5 % (21-51); MEAN CORPUSCULAR HEMOGLOBIN 32.4 PG (27.0-31.0); MEAN CORPUSCULAR HGB CONC 33.3 g/dL (33.0-36.5); MEAN CORPUSCULAR VOLUME 97.2 FL (78-98); MONOCYTES # (AUTO) 2.5 X10'3 (0-0.9); MONOCYTES % (AUTO) 14.4 % (2-12); NEUTROPHILS # (AUTO) 13.2 X10'3 (1.8-7.7); NEUTROPHILS % (AUTO) 76.2 % (42-75); PLATELET COUNT 296 X10'3 (140-440); RED BLOOD COUNT 4.56 X10'6 (4.70-6.10); RED CELL DISTRIBUTION WIDTH 13.9 % (11.5-14.5); WHITE BLOOD COUNT 17.4 X10'3 (4.5-11.0)
[2022-01-24 15:00] LABS: ALANINE AMINOTRANSFERASE 57 U/L (12-78); ALBUMIN 3.5 G/DL (3.4-5.0); ALBUMIN/GLOBULIN RATIO 0.8 (1.1-1.5); ALKALINE PHOSPHATASE 134 IU/L (46-116); ANION GAP 11 (8-16); ASPARTATE AMINO TRANSFERASE 40 U/L (10-37); BILIRUBIN,TOTAL 0.3 MG/DL (0.1-1.0); BLOOD UREA NITROGEN 16 MG/DL (7-18); BUN/CREATININE RATIO 18.6 (5.4-32.0); CALCIUM 8.9 MG/DL (8.5-10.1); CHLORIDE 101 MMOL/L (99-107); CREATININE 0.86 MG/DL (0.60-1.10); GLUCOSE 97 MG/DL (70-104); POTASSIUM 3.9 MMOL/L (3.5-5.1); SODIUM 134 MMOL/L (135-145); TOTAL CARBON DIOXIDE 21.7 MMOL/L (24-32); TOTAL PROTEIN 8.1 G/DL (6.4-8.2); eGFR 90 ML/MIN
[2022-01-24 15:15] LABS: EOSINOPHILS % (MANUAL) 1.5 % (0-6); LYMPHOCYTES % (MANUAL) 7.5 % (21-51); MONOCYTES % (MANUAL) 14.5 % (2-12); NEUTROPHILS % (MANUAL) 74.5 % (42-75); PLATELET ESTIMATE NORMAL; TOTAL CELLS COUNTED 200
[2022-01-24] MEDS ORDERED: ACET325T57 PO (16:09)
[2022-01-24] MEDS ORDERED: NAPR-996 PO (16:09)
[2022-01-24] MEDS ORDERED: ACET-2319 PO (16:10)
[2022-01-24] MEDS ORDERED: vancomycin/NS 1 GM ADD-VANTAGE 250 ML IV ONE (16:35)
[2022-01-24] MEDS ORDERED: CefTRIAXone/D5W-Rocephin 1gm 50 ML IV ONE (16:35)
[2022-01-24] MEDS ORDERED: ringers solution, lactated 1000ml IV soln IV ONE (16:35)
[2022-01-24] MEDS ORDERED: morphine 4 MG/ML inj SYRINge IV ONE (16:40)
[2022-01-24 17:31] LABS: C-REACTIVE PROTEIN 11.52 MG/DL (0.0-0.5)
--- NOTE | 2022-01-24 18:33 | NUR ---
Clay Plant Treater at bedside.
--- NOTE | 2022-01-24 18:51 | NUR ---
DR GOYAL WAS PAGED VASCULAR REPORT WAS COMPLETE AT [id number]
--- NOTE | 2022-01-24 19:29 | NUR ---
Patient is laying on gurney using urinal w/o problem, I will continue to monitor.
--- NOTE | 2022-01-24 20:38 | NUR ---
Dr. Serrano at the bedside, he gave me a verbal order for Morphine 2mg IV once.
[2022-01-24] MEDS ORDERED: morphine 2 MG/ML inj. syringe IV ONE (20:40)
[2022-01-24] MEDS ORDERED: ondansetron/PF 4mg/2ml inj IV PRN (20:45)
[2022-01-24] MEDS ORDERED: magnesium 4gm in 100ml NS 100 ML IV PRN (20:45)
[2022-01-24] MEDS: normal saline 1000ml 1,000 ML IV SCH ×2 (20:45→21:19)
[2022-01-24] MEDS ORDERED: magnesium 2GM in 50ml NS 50 ML IV PRN (20:45)
[2022-01-24] MEDS ORDERED: magnesium hydroxide 30ml (MOM) UD suspension PO PRN (20:45)
[2022-01-24] MEDS ORDERED: acetaminophen 325mg tablet PO PRN (20:45)
[2022-01-24] MEDS ORDERED: mag hydrox/Alum hydrox/simeth 30ml oral suspension PO PRN (20:45)
[2022-01-24] MEDS ORDERED: POTASSIUM BICARB 20meq eff tab 20 MEQ TABLET.EFF PO PRN ×2 (20:45)
[2022-01-24] MEDS ORDERED: potassium CL 10mEq/100ml bag 100 ML IV PRN (20:45)
[2022-01-24] MEDS ORDERED: magnesium Cl slow-release 64mg tablet PO PRN (20:45)
[2022-01-24 20:57] LABS: MAGNESIUM 2.2 MG/DL (1.5-2.4); POTASSIUM 4.6 MMOL/L (3.5-5.1)
[2022-01-24] MEDS ORDERED: vancomycin/NS 1 GM ADD-VANTAGE 250 ML X 1 DOSE IV ONE (21:25)
[2022-01-25] MEDS: morphine 2 MG/ML inj. syringe IV PRN (03:33)
[2022-01-25] MEDS: K and/or MAG REPLACEMENT MC SCH ×2 (06:43→20:00)
[2022-01-25] MEDS: docusate sod 100mg capsule PO SCH ×2 (06:44→20:30)
[2022-01-25 06:57] LABS: BASOPHILS # (AUTO) 0.1 X10'3 (0-0.2); BASOPHILS % (AUTO) 0.4 % (0-1); EOSINOPHILS # (AUTO) 0.1 X10'3 (0-0.9); EOSINOPHILS % (AUTO) 0.9 % (0-6); HEMATOCRIT 37.9 % (42.0-52.0); HEMOGLOBIN 12.6 g/dl (14.0-17.9); LYMPHOCYTES # (AUTO) 1.4 X10'3 (1.1-4.8); LYMPHOCYTES % (AUTO) 10.5 % (21-51); MEAN CORPUSCULAR HEMOGLOBIN 32.1 PG (27.0-31.0); MEAN CORPUSCULAR HGB CONC 33.2 g/dL (33.0-36.5); MEAN CORPUSCULAR VOLUME 96.6 FL (78-98); MEAN PLATELET VOLUME 6.9 FL (7.4-10.4); MONOCYTES # (AUTO) 2.3 X10'3 (0-0.9); MONOCYTES % (AUTO) 17.1 % (2-12); NEUTROPHILS # (AUTO) 9.6 X10'3 (1.8-7.7); NEUTROPHILS % (AUTO) 71.1 % (42-75); PLATELET COUNT 252 X10'3 (140-440); RED BLOOD COUNT 3.92 X10'6 (4.70-6.10); RED CELL DISTRIBUTION WIDTH 14.1 % (11.5-14.5); WHITE BLOOD COUNT 13.6 X10'3 (4.5-11.0)
[2022-01-25 07:20] LABS: ALANINE AMINOTRANSFERASE 35 U/L (12-78); ALBUMIN 2.5 G/DL (3.4-5.0); ALBUMIN/GLOBULIN RATIO 0.7 (1.1-1.5); ALKALINE PHOSPHATASE 99 IU/L (46-116); ANION GAP 8 (8-16); ASPARTATE AMINO TRANSFERASE 20 U/L (10-37); BILIRUBIN,TOTAL 0.2 MG/DL (0.1-1.0); BLOOD UREA NITROGEN 14 MG/DL (7-18); BUN/CREATININE RATIO 22.2 (5.4-32.0); CALCIUM 7.8 MG/DL (8.5-10.1); CHLORIDE 107 MMOL/L (99-107); CREATININE 0.63 MG/DL (0.60-1.10); GLUCOSE 89 MG/DL (70-104); MAGNESIUM 1.8 MG/DL (1.5-2.4); POTASSIUM 3.8 MMOL/L (3.5-5.1); SODIUM 139 MMOL/L (135-145); TOTAL CARBON DIOXIDE 24.1 MMOL/L (24-32); TOTAL PROTEIN 6.3 G/DL (6.4-8.2); eGFR > 90 ML/MIN
[2022-01-25 07:21] LABS: TOTAL CELLS COUNTED 100
[2022-01-25 07:22] LABS: PLATELET ESTIMATE NORMAL
[2022-01-25] MEDS: CefTRIAXone/D5W-Rocephin 1gm 50 ML IV SCH (08:08)
[2022-01-25] MEDS: heparin, porcine 5000 units/ml vial SQ SCH ×2 (08:08→20:31)
[2022-01-25] MEDS: HYDROcodone/acetaminophen 10/325mg tab PO PRN ×3 (08:15→20:35)
[2022-01-25] MEDS: VANCOmycin 1250MG/NS 250ml Bag 250 ML IV SCH ×2 (11:23→22:31)
--- NOTE | 2022-01-25 12:25 | NUR ---
attempt EKG, machine being used for another patient at this time. will attempt again.
[2022-01-25] MEDS ORDERED: iohexol 350MG/ML 100ml bottle IV ONE ×2 (14:52→14:53)
[2022-01-25] MEDS: normal saline 1000ml 1,000 ML IV SCH ×2 (17:13→20:22)
--- NOTE | 2022-01-25 17:30 | NUR ---
Pt. was brought to floor without RN receiving report. Transport staff stated someone had gotten report but was not able to say whom had received report on this pt. Later ED RN indicated he believed someone gave report for him. This was for a different patient. Transport staff declined to wait for RN to receive report before placing patient in room.
[2022-01-25 17:35] VITALS: BP 140/76
--- NOTE | 2022-01-25 18:41 | NUR ---
Problems reprioritized. Patient report given, questions answered & plan of care reviewed with Pat RN.
--- NOTE | 2022-01-25 19:30 | NUR ---
during assessment, pt at times asking questions that were already discussed; pt states he has short term memory; pt instructed not to get out of bed for safety reason as he'll be connected to running IV fluids; pt then repeated more than once he'll be getting up to toilet with his crutches; pt informed plan of having his bed changed to a new bed with a built in alarm as a reminder not to get out of bed Addendum: 01/26/22 at 0413 by Rita Traore RN Amended: Links added.
[2022-01-25] MEDS ORDERED: nitroGLYCERIN 0.4mg SUBLingual tab SL PRN (20:40)
[2022-01-25] MEDS ORDERED: metoprolol tartrate 1mg/ml inj IV PRN (20:40)
[2022-01-25] MEDS ORDERED: regadenoson 0.4mg/5ml syringe IV PRN (20:40)
[2022-01-25] MEDS ORDERED: aminophylline 500mg/20ml vial IV PRN (20:40)
[2022-01-25 22:00] VITALS: BP 124/66
[2022-01-26] VITALS (12 sets, daily range): BP systolic 100–147; BP diastolic 47–74
[2022-01-26] MEDS: HYDROcodone/acetaminophen 10/325mg tab PO PRN ×4 (00:54→23:06)
[2022-01-26] MEDS: morphine 2 MG/ML inj. syringe IV PRN ×3 (02:00→08:33)
--- NOTE | 2022-01-26 06:30 | NUR ---
Patient in room ORTHO 4007. I have received report from Niharika RN and had the opportunity to ask questions and assume patient care.
[2022-01-26 06:48] LABS: APTT 31 SECONDS (22-32)
[2022-01-26 07:01] LABS: BASOPHILS # (AUTO) 0.1 X10'3 (0-0.2); BASOPHILS % (AUTO) 0.4 % (0-1); EOSINOPHILS # (AUTO) 0.3 X10'3 (0-0.9); EOSINOPHILS % (AUTO) 2.5 % (0-6); HEMOGLOBIN 12.1 g/dl (14.0-17.9); LYMPHOCYTES # (AUTO) 2.1 X10'3 (1.1-4.8); LYMPHOCYTES % (AUTO) 15.1 % (21-51); MEAN CORPUSCULAR HEMOGLOBIN 32.8 PG (27.0-31.0); MEAN CORPUSCULAR HGB CONC 33.7 g/dL (33.0-36.5); MEAN CORPUSCULAR VOLUME 97.4 FL (78-98); MEAN PLATELET VOLUME 6.9 FL (7.4-10.4); MONOCYTES # (AUTO) 2.3 X10'3 (0-0.9); MONOCYTES % (AUTO) 16.1 % (2-12); NEUTROPHILS # (AUTO) 9.3 X10'3 (1.8-7.7); NEUTROPHILS % (AUTO) 65.9 % (42-75); PLATELET COUNT 262 X10'3 (140-440); RED CELL DISTRIBUTION WIDTH 14.1 % (11.5-14.5); WHITE BLOOD COUNT 14.1 X10'3 (4.5-11.0)
[2022-01-26 07:19] LABS: ALANINE AMINOTRANSFERASE 26 U/L (12-78); ALBUMIN 2.5 G/DL (3.4-5.0); ALBUMIN/GLOBULIN RATIO 0.6 (1.1-1.5); ALKALINE PHOSPHATASE 94 IU/L (46-116); ANION GAP 7 (8-16); ASPARTATE AMINO TRANSFERASE 16 U/L (10-37); BILIRUBIN,TOTAL 0.3 MG/DL (0.1-1.0); BLOOD UREA NITROGEN 14 MG/DL (7-18); BUN/CREATININE RATIO 19.7 (5.4-32.0); CALCIUM 7.7 MG/DL (8.5-10.1); CHLORIDE 105 MMOL/L (99-107); CHOL/HDL RATIO 3.4 (0.00-4.99); CHOLESTEROL 114 MG/DL (0-200); CREATININE 0.71 MG/DL (0.60-1.10); GLUCOSE 80 MG/DL (70-104); HDL CHOLESTEROL 34 MG/DL (35-60); LDL CHOLESTEROL 68 MG/DL (50-100); POTASSIUM 3.6 MMOL/L (3.5-5.1); SODIUM 136 MMOL/L (135-145); TOTAL PROTEIN 6.4 G/DL (6.4-8.2); TRIGLYCERIDES 100 MG/DL (20-135); eGFR > 90 ML/MIN
[2022-01-26 07:48] LABS: HEMOGLOBIN A1C 6.1 % (4.5-6.2)
[2022-01-26] MEDS: K and/or MAG REPLACEMENT MC SCH ×2 (08:00→19:22)
[2022-01-26] MEDS: docusate sod 100mg capsule PO SCH ×2 (08:00→19:21)
[2022-01-26] MEDS: heparin, porcine 5000 units/ml vial SQ SCH ×2 (08:00→19:22)
[2022-01-26] MEDS ORDERED: VANCOMYCIN LEVEL IV ONE (09:30)
[2022-01-26] MEDS: CefTRIAXone/D5W-Rocephin 1gm 50 ML IV SCH (09:59)
[2022-01-26] MEDS: normal saline 1000ml 1,000 ML IV SCH (10:00)
[2022-01-26] MEDS: VANCOmycin 1250MG/NS 250ml Bag 250 ML IV SCH (11:49)
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
--- NOTE | 2022-01-26 18:23 | NUR ---
Problems reprioritized. Patient report given, questions answered & plan of care reviewed with Brianne SCOTT.
--- NOTE | 2022-01-26 18:35 | NUR ---
Charting reviewed and agreed with findings.
--- NOTE | 2022-01-26 22:26 | NUR ---
Charting by Pattie DIEZ reviewed by Hussein Obregon RN
[2022-01-26] MEDS: VANCOMYCIN 1,500MG in normal saline IV soln 300 ML IV SCH (23:07)
[2022-01-27] VITALS (15 sets, daily range): BP systolic 106–159; BP diastolic 52–79
[2022-01-27] MEDS: HYDROcodone/acetaminophen 10/325mg tab PO PRN (02:36)
[2022-01-27] MEDS: normal saline 1000ml 1,000 ML IV SCH ×3 (02:40→23:59)
--- NOTE | 2022-01-27 06:30 | NUR ---
Patient in room ORTHO 4007. I have received report from skyler SCOTT and had the opportunity to ask questions and assume patient care.
--- NOTE | 2022-01-27 06:37 | NUR ---
Problems reprioritized. Patient report given, questions answered & plan of care reviewed with Eve SCOTT and Lillian SCOTT.
--- NOTE | 2022-01-27 07:14 | NUR ---
Patient in room ORTHO 4007. I have received report from Brianne SCOTT and had the opportunity to ask questions and assume patient care.
[2022-01-27] MEDS: docusate sod 100mg capsule PO SCH ×2 (07:28→20:00)
[2022-01-27] MEDS: CefTRIAXone/D5W-Rocephin 1gm 50 ML IV SCH (07:28)
[2022-01-27] MEDS: heparin, porcine 5000 units/ml vial SQ SCH ×2 (07:31→20:00)
[2022-01-27 07:35] LABS: BASOPHILS # (AUTO) 0.1 X10'3 (0-0.2); BASOPHILS % (AUTO) 0.5 % (0-1); EOSINOPHILS # (AUTO) 0.4 X10'3 (0-0.9); EOSINOPHILS % (AUTO) 2.9 % (0-6); HEMATOCRIT 34.5 % (42.0-52.0); HEMOGLOBIN 11.6 g/dl (14.0-17.9); MEAN CORPUSCULAR HEMOGLOBIN 32.5 PG (27.0-31.0); MEAN CORPUSCULAR HGB CONC 33.5 g/dL (33.0-36.5); MEAN CORPUSCULAR VOLUME 96.8 FL (78-98); MONOCYTES % (AUTO) 15.4 % (2-12); NEUTROPHILS # (AUTO) 8.6 X10'3 (1.8-7.7); NEUTROPHILS % (AUTO) 66.2 % (42-75); PLATELET COUNT 309 X10'3 (140-440); RED BLOOD COUNT 3.56 X10'6 (4.70-6.10); RED CELL DISTRIBUTION WIDTH 13.8 % (11.5-14.5)
[2022-01-27] MEDS: K and/or MAG REPLACEMENT MC SCH ×2 (08:00→20:00)
[2022-01-27 08:07] LABS: ALANINE AMINOTRANSFERASE 22 U/L (12-78); ALBUMIN 2.4 G/DL (3.4-5.0); ALBUMIN/GLOBULIN RATIO 0.6 (1.1-1.5); ALKALINE PHOSPHATASE 84 IU/L (46-116); ANION GAP 9 (8-16); ASPARTATE AMINO TRANSFERASE 16 U/L (10-37); BILIRUBIN,TOTAL 0.3 MG/DL (0.1-1.0); BLOOD UREA NITROGEN 13 MG/DL (7-18); BUN/CREATININE RATIO 19.4 (5.4-32.0); CALCIUM 7.7 MG/DL (8.5-10.1); CHLORIDE 106 MMOL/L (99-107); CREATININE 0.67 MG/DL (0.60-1.10); GLUCOSE 90 MG/DL (70-104); MAGNESIUM 2.2 MG/DL (1.5-2.4); POTASSIUM 3.9 MMOL/L (3.5-5.1); SODIUM 139 MMOL/L (135-145); TOTAL PROTEIN 6.4 G/DL (6.4-8.2); eGFR > 90 ML/MIN
[2022-01-27] MEDS: VANCOMYCIN 1,500MG in normal saline IV soln 300 ML IV SCH ×2 (11:20→23:59)
--- NOTE | 2022-01-27 11:53 | NUR ---
Patient taken to Surgery at 1150 Blood Glucose was 82. Report Given to Gil Tristan RN.
--- NOTE | 2022-01-27 11:57 | NUR ---
Problems reprioritized. Patient report given, questions answered & plan of care reviewed with Gil SCOTTcard clothier Nurse.
[2022-01-27] MEDS ORDERED: nitroGLYCERIN-Tridil 50MG/D5W 250 ML IV PRN (12:40)
[2022-01-27] MEDS ORDERED: nitroGLYCERIN in D5W 50mg/250ml (Tridil) infusion IV ONE (13:02)
[2022-01-27] MEDS ORDERED: dexamethasone sod phosphate 10mg/ml inj ONE (13:02)
[2022-01-27] MEDS ORDERED: ondansetron/PF 4mg/2ml inj ONE (13:02)
[2022-01-27] MEDS ORDERED: sevoflurane 250ml liquid IH ONE (13:02)
[2022-01-27] MEDS ORDERED: LIDOCAINE 1% w/preservative (10 MG/ML) inj. 10mL VIAL ONE (13:02)
[2022-01-27] MEDS ORDERED: metoprolol tartrate 1mg/ml inj IV ONE (13:02)
[2022-01-27] MEDS ORDERED: morphine /PF 1mg/ml 10ml inj. ONE (13:21)
[2022-01-27] MEDS ORDERED: MIDAZolam 1 MG/ML 5ML VIAL ONE (13:22)
[2022-01-27] MEDS ORDERED: fentaNYL /PF 50mcg/ml 5ml ampule ONE (13:22)
--- NOTE | 2022-01-27 14:10 | NUR ---
Received message that patient will be transferred to 2039 after surgery
[2022-01-27] MEDS: heparin 10,000 units/1 ML INJ ONE ×3 (14:40→16:32)
[2022-01-27] MEDS ORDERED: rocuronium 10mg/ml inj IV ONE ×2 (14:42)
[2022-01-27] MEDS ORDERED: mannitol 12.5gm/50mL VIAL IV ONE (14:55)
[2022-01-27] MEDS ORDERED: propofol inj 20 ML IV ONE (15:19)
[2022-01-27] MEDS ORDERED: ringers solution, lacted 1,000 ML IV SCH (17:05)
[2022-01-27] MEDS ORDERED: morphine 4 MG/ML inj SYRINge IV PRN (17:05)
[2022-01-27] MEDS ORDERED: morphine 2 MG/ML inj. syringe IV PRN (17:05)
[2022-01-27] MEDS ORDERED: meperidine/PF 25mg/ml syringe IV PRN ×3 (17:05)
[2022-01-27] MEDS ORDERED: ondansetron/PF 4mg/2ml inj IV PRN (17:05)
[2022-01-27] MEDS ORDERED: proCHLORperazine 10 MG/2 ml inj IV PRN (17:05)
[2022-01-27] MEDS ORDERED: BUPIVACAINE liposomal/PF 13.3 MG/ML vial IM ONE (17:42)
[2022-01-27] MEDS ORDERED: BUPIVAcaine/PF 2.5 mg/ml (0.25%) 30ml vial ONE (17:42)
[2022-01-27 17:50] LABS: ISTAT ANION GAP 11 (8-12); ISTAT BUN 8 mg/dL (7-18); ISTAT CL 107 mmol/L (99-107); ISTAT CREATININE 0.4 mg/dL (0.8-1.3); ISTAT GLUCOSE 112 mg/dL (70-104); ISTAT HGB 10.5 g/dl (14.0-17.9); ISTAT Hct 31 %PCV (42-52); ISTAT IONIZED CALCIUM 0.99 mmol/L (1.03-1.32); ISTAT K 3.7 mmol/L (3.5-5.1); ISTAT NA 139 mmol/L (135-145); ISTAT TOTAL CO2 21 mmol/L (24-32); ISTAT eGFR > 90 ML/MIN
[2022-01-27] MEDS ORDERED: neostigmine methylsulfate 1 MG/ML 10ml vial ONE (18:30)
[2022-01-27] MEDS ORDERED: glycopyrrolate 0.2mg/ml inj ONE (18:31)
--- NOTE | 2022-01-27 18:40 | NUR ---
Received from OR via ICU BED , accompanied by Anesthesiologist CECILIA and report given by Anesthesiolgist. PATIENT WITH NGT TO LOW CONTINOUS, NO DRAINGAE PRESENT. RIGHT UE WITH ART LINE , TRIPLE LUMEN CENTRAL LINE TO RIGHT NECK. LEFT UE WITH 20G PIV IN RUNNING LR AT 100. MIDLINE ABDOMINAL DRESSING SPOTTED WITH BLOOD LEADING TO A PROVENA VAC TO LEFT GROIN AND ANOTHER ISLAND DRESSING TO LEFT INNER THIGH. SPOTTED BUT DRAINAGE- BLOODY- CONTAINED WITHIN DRESSING LEFT + PALPABLE DORSALIS PEDIS PULSE PRESENT. MULTIPLE SMALL SCABBING TO LEFT LE. PATIENT WITH RIGHT FOOT WITH WEAKER BUT AUDIBLE DORSALIS PEDIS. PATIENT WITH TEMP ESQUIVEL CATHETER PRESENT CLEAR YELLOW URINE. DENIES PAIN. Addendum: 01/27/22 at 1909 by Bhargav Rankin RN RN Amended: Links added.
[2022-01-27 18:43] LABS: APTT > 139 SECONDS (22-32)
[2022-01-27] MEDS ORDERED: naloxone 0.4 mg/ml inj IV PRN (19:30)
--- NOTE | 2022-01-27 19:30 | NUR ---
REPORT GIVEN AND ALL QUESTIONS ANSWERED. PATIENT TRANSFERRED TO SURG/ORTHO PCU ICU. LABELED BELONGINGS PRESENT AND DELIVERED TO ROOM. RN PRESENT ALL CRITERIA FOR TRANSFER BACK TO THE FLOOR HAS BEEN ACHIEVED. VSS. PAIN AT A TOLERABLE LEVEL. BED LOW, CALL LIGHT PRESENT AND 2 RAILS DOWN. SONIA ZULETA AWARE THAT PATIENT HAS ARRIVED. TO ACCEPT CARE OF PATIENT.CARE TURNED OVER TO SONIA HAYES. Addendum: 01/27/22 at 1931 by Bhargav Cortes - SONIA SCOTT Amended: Links added.
--- NOTE | 2022-01-27 19:31 | NUR ---
Patient in room ICU 2039. I have received report from recovery assistant Bhargav and had the opportunity to ask questions and assume patient care.
[2022-01-27 20:12] LABS: APTT 43 SECONDS (22-32)
[2022-01-27] MEDS: phenylephrine inj 50 MG in normal saline 250ml IV solN IV SCH (20:40)
--- NOTE | 2022-01-27 20:56 | NUR ---
SHIRIN kirkland present on arrival from OR Addendum: 01/27/22 at 2057 by Deb Fisher RN Amended: Links added.
[2022-01-27] MEDS: morphine 2 MG/ML inj. syringe IV PRN (21:55)
[2022-01-28] VITALS (24 sets, daily range): BP systolic 111–151; BP diastolic 52–85
--- NOTE | 2022-01-28 01:50 | NUR ---
Patient impulsive at times, but able to redirect easily. Bradycardic to mid 50s when appearing to be asleep, BP 119/56(77).
[2022-01-28 02:57] LABS: BASOPHILS % (AUTO) 0.1 % (0-1); EOSINOPHILS % (AUTO) 0 % (0-6); HEMATOCRIT 34.7 % (42.0-52.0); HEMOGLOBIN 11.9 g/dl (14.0-17.9); LYMPHOCYTES # (AUTO) 0.7 X10'3 (1.1-4.8); LYMPHOCYTES % (AUTO) 3.4 % (21-51); MEAN CORPUSCULAR HGB CONC 34.1 g/dL (33.0-36.5); MEAN CORPUSCULAR VOLUME 96.6 FL (78-98); MEAN PLATELET VOLUME 6.8 FL (7.4-10.4); MONOCYTES # (AUTO) 0.9 X10'3 (0-0.9); MONOCYTES % (AUTO) 4.7 % (2-12); NEUTROPHILS # (AUTO) 18.3 X10'3 (1.8-7.7); NEUTROPHILS % (AUTO) 91.8 % (42-75); PLATELET COUNT 364 X10'3 (140-440); RED CELL DISTRIBUTION WIDTH 13.9 % (11.5-14.5); WHITE BLOOD COUNT 19.9 X10'3 (4.5-11.0)
[2022-01-28 03:11] LABS: ALANINE AMINOTRANSFERASE 18 U/L (12-78); ALBUMIN 2.1 G/DL (3.4-5.0); ALBUMIN/GLOBULIN RATIO 0.5 (1.1-1.5); ALKALINE PHOSPHATASE 79 IU/L (46-116); ANION GAP 10 (8-16); ASPARTATE AMINO TRANSFERASE 17 U/L (10-37); BILIRUBIN,TOTAL 0.2 MG/DL (0.1-1.0); BLOOD UREA NITROGEN 11 MG/DL (7-18); BUN/CREATININE RATIO 16.2 (5.4-32.0); CALCIUM 7.4 MG/DL (8.5-10.1); CHLORIDE 105 MMOL/L (99-107); CREATININE 0.68 MG/DL (0.60-1.10); GLUCOSE 130 MG/DL (70-104); POTASSIUM 4.1 MMOL/L (3.5-5.1); SODIUM 137 MMOL/L (135-145); TOTAL PROTEIN 6.2 G/DL (6.4-8.2); eGFR > 90 ML/MIN
[2022-01-28] MEDS: normal saline 1000ml 1,000 ML IV SCH ×3 (04:45→22:35)
--- NOTE | 2022-01-28 06:53 | NUR ---
Problems reprioritized. Patient report given, questions answered & plan of care reviewed with oncoming shift.
[2022-01-28] MEDS: phenylephrine inj 50 MG in normal saline 250ml IV solN IV SCH (07:29)
[2022-01-28] MEDS: docusate sod 100mg capsule PO SCH ×2 (08:03→20:00)
[2022-01-28] MEDS: heparin, porcine 5000 units/ml vial SQ SCH ×2 (08:03→15:55)
[2022-01-28] MEDS: CefTRIAXone/D5W-Rocephin 1gm 50 ML IV SCH (08:04)
[2022-01-28] MEDS: morphine 2 MG/ML inj. syringe IV PRN ×3 (08:04→22:35)
[2022-01-28] MEDS: K and/or MAG REPLACEMENT MC SCH ×2 (08:06→20:00)
[2022-01-28] MEDS ORDERED: VANCOMYCIN LEVEL IV ONE (10:30)
[2022-01-28] MEDS: VANCOMYCIN 1,500MG in normal saline IV soln 300 ML IV SCH ×2 (13:07→22:34)
--- NOTE | 2022-01-28 14:30 | NUR ---
PRESSURE ULCER EDUCATION: DEFINITION: A pressure ulcer is an area of skin that breaks down when you stay in one position too long. The constant pressure against the skin reduces the blood flow to that area and the affected tissue dies. CAUSES: "Being bedridden or in a wheelchair "Fragile skin "Having a chronic condition, such as diabetes or vascular disease "Inability to move certain parts of your body without assistance "Older age "Incontinence of urine or stool SYMPTOMS: "A reddened area that DOES NOT turn white when pressed on - this can be the beginning of a pressure ulcer "A blister, deep sore or a crater - these can be advanced pressure ulcers FIRST AID: "Relieve the pressure on this area "Keep the area clean and dry "Call your primary doctor if you see any of the above symptoms "DO NOT massage the area "DO NOT use a donut shaped or ring shaped pillow- these actually interfere with the blood flow and cause complications PREVENTION: "Check for pressure ulcers everyday "Change position at least every two hours to relieve pressure "Use items that help relieve pressure- pillows, sheepskin, foam padding, and powders. "Keep skin clean and dry "Eat healthy well balanced meals "Exercise daily IF YOU SEE ANY OF THESE SYMPTOMS WHILE IN THE HOSPITAL - TELL YOUR NURSE IMMEDIATELY. IF YOU SEE ANY OF THESE SYMPTOMS WHILE AT HOME OR HAVE ANY QUESTIONS OR CONCERNS ABOUT PRESSURE ULCERS - CALL YOUR PRIMARY DOCTOR IMMEDIATELY. Addendum: 01/28/22 at 1432 by Sophia Brown LVN Amended: Links added.
[2022-01-28] MEDS: HYDROcodone/acetaminophen 10/325mg tab PO PRN (14:46)
[2022-01-28] MEDS ORDERED: metoclopramide 5 mg/ml inj IV PRN (15:05)
--- NOTE | 2022-01-28 15:54 | NUR ---
Assisted pt. with ambulation per Leti CISNEROS verbal order. Pt. placed back on NPO d/t illeus. Pending void post mayfield removal.
--- NOTE | 2022-01-28 18:22 | NUR ---
Problems reprioritized. Patient report given, questions answered & plan of care reviewed with Deb SCOTT.
[2022-01-28] MEDS: HYDROmorphone inj. 0.5 MG/0.5 ML DISP.SYRIN IV PRN (19:44)
--- NOTE | 2022-01-28 19:50 | NUR ---
1830-Patient in room ICU 2039. I have received report from day shift RN and had the opportunity to ask questions and assume patient care. 1950-medicated patient for pain level of 10 per patient statement.
--- NOTE | 2022-01-28 21:00 | NUR ---
Late entry-Dr. Landeros here. Okay to transfer patient to floor if ICU bed needed.
[2022-01-29] VITALS (18 sets, daily range): BP systolic 97–138; BP diastolic 47–85
[2022-01-29] MEDS: heparin, porcine 5000 units/ml vial SQ SCH ×4 (02:01→23:21)
[2022-01-29] MEDS: metoclopramide 5 mg/ml inj IV SCH ×3 (02:02→14:13)
[2022-01-29] MEDS: HYDROcodone/acetaminophen 10/325mg tab PO PRN ×5 (02:22→21:35)
--- NOTE | 2022-01-29 06:00 | NUR ---
Patient in room ICU 2039. I have received report from SONIA Boyd and had the opportunity to ask questions and assume patient care.
[2022-01-29 06:33] LABS: BASOPHILS % (AUTO) 0.2 % (0-1); EOSINOPHILS % (AUTO) 0.2 % (0-6); HEMATOCRIT 31.5 % (42.0-52.0); HEMOGLOBIN 10.7 g/dl (14.0-17.9); LYMPHOCYTES # (AUTO) 1.4 X10'3 (1.1-4.8); LYMPHOCYTES % (AUTO) 9.4 % (21-51); MEAN CORPUSCULAR HGB CONC 33.9 g/dL (33.0-36.5); MEAN CORPUSCULAR VOLUME 97.3 FL (78-98); MONOCYTES # (AUTO) 1.7 X10'3 (0-0.9); MONOCYTES % (AUTO) 11.6 % (2-12); NEUTROPHILS # (AUTO) 11.8 X10'3 (1.8-7.7); NEUTROPHILS % (AUTO) 78.6 % (42-75); PLATELET COUNT 382 X10'3 (140-440); RED BLOOD COUNT 3.23 X10'6 (4.70-6.10); RED CELL DISTRIBUTION WIDTH 13.7 % (11.5-14.5)
--- NOTE | 2022-01-29 06:34 | NUR ---
Problems reprioritized. Patient report given, questions answered & plan of care reviewed with day shift RN.
[2022-01-29 06:52] LABS: ALANINE AMINOTRANSFERASE 19 U/L (12-78); ALBUMIN 2.1 G/DL (3.4-5.0); ALBUMIN/GLOBULIN RATIO 0.5 (1.1-1.5); ALKALINE PHOSPHATASE 75 IU/L (46-116); ANION GAP 6 (8-16); ASPARTATE AMINO TRANSFERASE 25 U/L (10-37); BILIRUBIN,TOTAL 0.3 MG/DL (0.1-1.0); BLOOD UREA NITROGEN 14 MG/DL (7-18); BUN/CREATININE RATIO 19.7 (5.4-32.0); CALCIUM 7.3 MG/DL (8.5-10.1); CHLORIDE 109 MMOL/L (99-107); CREATININE 0.71 MG/DL (0.60-1.10); GLUCOSE 102 MG/DL (70-104); POTASSIUM 3.7 MMOL/L (3.5-5.1); SODIUM 140 MMOL/L (135-145); TOTAL CARBON DIOXIDE 25.5 MMOL/L (24-32); eGFR > 90 ML/MIN
[2022-01-29] MEDS: K and/or MAG REPLACEMENT MC SCH ×2 (08:00→19:26)
[2022-01-29] MEDS: docusate sod 100mg capsule PO SCH (08:21)
[2022-01-29] MEDS: aspirin 81mg, enteric-coated 1 TAB TABLET.DR PO SCH (08:21)
[2022-01-29] MEDS: CefTRIAXone/D5W-Rocephin 1gm 50 ML IV SCH (08:22)
--- NOTE | 2022-01-29 09:35 | NUR ---
Initial: Pt admit for gangrene toe with a high suspicion index for PVD. Per physician notes pt s/p revascularization of occluded left common iliac, left external iliac and left SFA arteries with femoral bypass. Pt seen by wound care, per report pt with a wound VAC to left groin, left knee abrasion, and an unstageable pressure ulcer to left heel. Patient's diet has fluctuated between regular, heart healthy, and NPO and overall eating well with average 70% PO intake. Despite active diet order pt documented to be NPO at this time. Recommend liberalizing to regular diet in view of lipid panel WNL with the exception of slightly low HDL. No documented BM since admit, pt receiving routine bowel care and started on routine prokinetic agent today. No appropriate nutrition intervention at this time. Will continue to follow and make recommendations as appropriate. Recommendations: 1) Liberalize to regular diet 2) Monitor need for ONS/additional protein 3) Routine bowel care and prokinetic agent per physician 4) Scaled weight this admit; subsequent weekly scaled weights Addendum: 01/29/22 at [address] Amended: Links added.
[2022-01-29] MEDS: HYDROmorphone inj. 0.5 MG/0.5 ML DISP.SYRIN IV PRN (09:36)
[2022-01-29] MEDS: VANCOMYCIN 1,500MG in normal saline IV soln 300 ML IV SCH ×2 (12:41→23:21)
[2022-01-29] MEDS: normal saline 1000ml 1,000 ML IV SCH ×2 (12:42→22:41)
--- NOTE | 2022-01-29 15:45 | NUR ---
Pt seen by MD Ward this morning, no new orders, ok to transfer to floor today. Dressing changes completed as ordered, no output from woundvac. Pt states he has not had BM since admission, scheduled stool softener given, bowel sounds present, passing gas, abd soft, tolerating diet ok. Problems reprioritized. Patient report given, questions answered & plan of care reviewed with SONIA Lane. Pt transferred to [facility] via wheelchair with all belongings.
--- NOTE | 2022-01-29 18:15 | NUR ---
Patient report given, questions answered & plan of care reviewed with SONIA Woods .
--- NOTE | 2022-01-29 18:32 | NUR ---
Patient in room ORTHO 4022. I have received report from SONIA Lane and had the opportunity to ask questions and assume patient care.
[2022-01-29] MEDS ORDERED: metoclopramide 5 mg/ml inj IV SCH (20:00)
[2022-01-30] MEDS: normal saline 1000ml 1,000 ML IV SCH ×3 (02:06→23:54)
[2022-01-30] MEDS: HYDROcodone/acetaminophen 10/325mg tab PO PRN ×5 (05:21→23:54)
[2022-01-30 06:00] VITALS: BP 152/76
--- NOTE | 2022-01-30 06:20 | NUR ---
received report from angeles washburn
--- NOTE | 2022-01-30 06:35 | NUR ---
Patient in room ORTHO 4022. I have received report from SONIA Wilson and had the opportunity to ask questions and assume patient care.
[2022-01-30] MEDS: K and/or MAG REPLACEMENT MC SCH ×2 (07:44→20:00)
[2022-01-30] MEDS: HYDROmorphone inj. 0.5 MG/0.5 ML DISP.SYRIN IV PRN ×3 (07:49→16:27)
[2022-01-30] MEDS: heparin, porcine 5000 units/ml vial SQ SCH ×3 (07:50→23:49)
[2022-01-30] MEDS: CefTRIAXone/D5W-Rocephin 1gm 50 ML IV SCH (07:51)
[2022-01-30] MEDS: aspirin 81mg, enteric-coated 1 TAB TABLET.DR PO SCH (07:51)
[2022-01-30 10:00] VITALS: BP 117/60
[2022-01-30] MEDS ORDERED: sennosides/docusate sodium tablet PO PRN (10:15)
[2022-01-30] MEDS: VANCOMYCIN 1,500MG in normal saline IV soln 300 ML IV SCH ×2 (11:16→23:49)
[2022-01-30 13:06] LABS: BASOPHILS % (AUTO) 0.2 % (0-1); EOSINOPHILS # (AUTO) 0.6 X10'3 (0-0.9); EOSINOPHILS % (AUTO) 4.4 % (0-6); HEMOGLOBIN 10.8 g/dl (14.0-17.9); LYMPHOCYTES # (AUTO) 1.8 X10'3 (1.1-4.8); LYMPHOCYTES % (AUTO) 13.4 % (21-51); MEAN CORPUSCULAR HEMOGLOBIN 32.6 PG (27.0-31.0); MEAN CORPUSCULAR HGB CONC 33.8 g/dL (33.0-36.5); MEAN CORPUSCULAR VOLUME 96.5 FL (78-98); MEAN PLATELET VOLUME 6.7 FL (7.4-10.4); MONOCYTES # (AUTO) 1.9 X10'3 (0-0.9); MONOCYTES % (AUTO) 14.6 % (2-12); NEUTROPHILS # (AUTO) 8.9 X10'3 (1.8-7.7); NEUTROPHILS % (AUTO) 67.4 % (42-75); PLATELET COUNT 406 X10'3 (140-440); RED BLOOD COUNT 3.32 X10'6 (4.70-6.10); RED CELL DISTRIBUTION WIDTH 14.2 % (11.5-14.5); WHITE BLOOD COUNT 13.2 X10'3 (4.5-11.0)
--- NOTE | 2022-01-30 13:06 | NUR ---
EARLIER TODAY OFFERED PT PEPPER LAX PER MD ORDERS, PT REFUSED, PT TOLD ME THAT HE WILL GET UP ON TOILET TO HAVE A BM TODAY, CONTINUE TO OFFER AND EDUCATE ON THE IMPORTANCE OF HAVING REGULAR BOWEL MOVEMENTS
[2022-01-30 13:10] LABS: ALANINE AMINOTRANSFERASE 24 U/L (12-78); ALBUMIN/GLOBULIN RATIO 0.5 (1.1-1.5); ALKALINE PHOSPHATASE 70 IU/L (46-116); ANION GAP 5 (8-16); ASPARTATE AMINO TRANSFERASE 25 U/L (10-37); BILIRUBIN,TOTAL 0.2 MG/DL (0.1-1.0); BLOOD UREA NITROGEN 6 MG/DL (7-18); CALCIUM 7.8 MG/DL (8.5-10.1); CHLORIDE 106 MMOL/L (99-107); GLUCOSE 110 MG/DL (70-104); POTASSIUM 3.9 MMOL/L (3.5-5.1); SODIUM 138 MMOL/L (135-145); TOTAL CARBON DIOXIDE 27.3 MMOL/L (24-32); TOTAL PROTEIN 6.2 G/DL (6.4-8.2); eGFR > 90 ML/MIN
[2022-01-30 18:00] VITALS: BP 115/65
--- NOTE | 2022-01-30 18:13 | NUR ---
GAVE REPORT TO July,
[2022-01-30 22:00] VITALS: BP 117/63
[2022-01-31] MEDS: aspirin 81mg, enteric-coated 1 TAB TABLET.DR PO SCH (08:09)
[2022-01-31] MEDS: heparin, porcine 5000 units/ml vial SQ SCH ×2 (08:11→14:44)
[2022-01-31] MEDS: K and/or MAG REPLACEMENT MC SCH ×2 (08:29→20:00)
[2022-01-31] MEDS: HYDROcodone/acetaminophen 10/325mg tab PO PRN ×3 (08:39→19:00)
[2022-01-31] MEDS: CefTRIAXone/D5W-Rocephin 1gm 50 ML IV SCH (08:42)
[2022-01-31 10:00] VITALS: BP 140/71
[2022-01-31] MEDS ORDERED: HYDROmorphone inj. 0.5 MG/0.5 ML DISP.SYRIN IV ONE (11:00)
[2022-01-31 11:14] VITALS: BP 129/71
[2022-01-31 12:10] LABS: BASOPHILS # (AUTO) 0.1 X10'3 (0-0.2); BASOPHILS % (AUTO) 0.4 % (0-1); EOSINOPHILS # (AUTO) 0.8 X10'3 (0-0.9); EOSINOPHILS % (AUTO) 4.9 % (0-6); HEMATOCRIT 33.7 % (42.0-52.0); HEMOGLOBIN 10.9 g/dl (14.0-17.9); LYMPHOCYTES # (AUTO) 1.2 X10'3 (1.1-4.8); LYMPHOCYTES % (AUTO) 7.1 % (21-51); MEAN CORPUSCULAR HEMOGLOBIN 31.7 PG (27.0-31.0); MEAN CORPUSCULAR HGB CONC 32.4 g/dL (33.0-36.5); MEAN CORPUSCULAR VOLUME 97.9 FL (78-98); MEAN PLATELET VOLUME 7.1 FL (7.4-10.4); MONOCYTES # (AUTO) 2.5 X10'3 (0-0.9); MONOCYTES % (AUTO) 14.9 % (2-12); NEUTROPHILS # (AUTO) 12.4 X10'3 (1.8-7.7); NEUTROPHILS % (AUTO) 72.7 % (42-75); PLATELET COUNT 446 X10'3 (140-440); RED BLOOD COUNT 3.45 X10'6 (4.70-6.10); RED CELL DISTRIBUTION WIDTH 14.1 % (11.5-14.5); WHITE BLOOD COUNT 17.1 X10'3 (4.5-11.0)
--- NOTE | 2022-01-31 12:11 | NUR ---
as instructor i reviewed student nurse charting
[2022-01-31 12:37] LABS: ALANINE AMINOTRANSFERASE 24 U/L (12-78); ALBUMIN 1.8 G/DL (3.4-5.0); ALBUMIN/GLOBULIN RATIO 0.4 (1.1-1.5); ALKALINE PHOSPHATASE 72 IU/L (46-116); ANION GAP 7 (8-16); ASPARTATE AMINO TRANSFERASE 27 U/L (10-37); BILIRUBIN,TOTAL 0.2 MG/DL (0.1-1.0); BLOOD UREA NITROGEN 8 MG/DL (7-18); BUN/CREATININE RATIO 12.9 (5.4-32.0); CHLORIDE 105 MMOL/L (99-107); CREATININE 0.62 MG/DL (0.60-1.10); GLUCOSE 89 MG/DL (70-104); POTASSIUM 3.9 MMOL/L (3.5-5.1); SODIUM 138 MMOL/L (135-145); TOTAL CARBON DIOXIDE 25.7 MMOL/L (24-32); TOTAL PROTEIN 5.9 G/DL (6.4-8.2); eGFR > 90 ML/MIN
--- NOTE | 2022-01-31 14:41 | NUR ---
PRESSURE ULCER EDUCATION: DEFINITION: A pressure ulcer is an area of skin that breaks down when you stay in one position too long. The constant pressure against the skin reduces the blood flow to that area and the affected tissue dies. CAUSES: "Being bedridden or in a wheelchair "Fragile skin "Having a chronic condition, such as diabetes or vascular disease "Inability to move certain parts of your body without assistance "Older age "Incontinence of urine or stool SYMPTOMS: "A reddened area that DOES NOT turn white when pressed on - this can be the beginning of a pressure ulcer "A blister, deep sore or a crater - these can be advanced pressure ulcers FIRST AID: "Relieve the pressure on this area "Keep the area clean and dry "Call your primary doctor if you see any of the above symptoms "DO NOT massage the area "DO NOT use a donut shaped or ring shaped pillow- these actually interfere with the blood flow and cause complications PREVENTION: "Check for pressure ulcers everyday "Change position at least every two hours to relieve pressure "Use items that help relieve pressure- pillows, sheepskin, foam padding, and powders. "Keep skin clean and dry "Eat healthy well balanced meals "Exercise daily IF YOU SEE ANY OF THESE SYMPTOMS WHILE IN THE HOSPITAL - TELL YOUR NURSE IMMEDIATELY. IF YOU SEE ANY OF THESE SYMPTOMS WHILE AT HOME OR HAVE ANY QUESTIONS OR CONCERNS ABOUT PRESSURE ULCERS - CALL YOUR PRIMARY DOCTOR IMMEDIATELY. Addendum: 01/31/22 at 1442 by Dana Houston RN Amended: Links added.
[2022-01-31] MEDS: VANCOMYCIN 1,500MG in normal saline IV soln 300 ML IV SCH (14:43)
[2022-01-31] MEDS: normal saline 1000ml 1,000 ML IV SCH ×2 (14:50→21:20)
[2022-01-31] MEDS ORDERED: morphine 2 MG/ML inj. syringe IV PRN (15:35)
[2022-01-31 18:00] VITALS: BP 123/74
--- NOTE | 2022-01-31 18:21 | NUR ---
Problems reprioritized. Patient report given, questions answered & plan of care reviewed with Winifred SCOTT.
[2022-01-31] MEDS: cefepime 1GM/NS ADD-VANTAGE 100 ML IV SCH (19:26)
[2022-01-31 22:00] VITALS: BP 107/90
[2022-02-01] MEDS: VANCOMYCIN 1,500MG in normal saline IV soln 300 ML IV SCH ×3 (00:02→23:39)
[2022-02-01] MEDS: HYDROcodone/acetaminophen 10/325mg tab PO PRN ×6 (03:52→23:39)
[2022-02-01] MEDS: normal saline 1000ml 1,000 ML IV SCH ×4 (04:01→23:43)
[2022-02-01 06:00] VITALS: BP 110/67
--- NOTE | 2022-02-01 06:46 | NUR ---
Patient in room ORTHO 4022. I have received report from Winifred RN and had the opportunity to ask questions and assume patient care.
--- NOTE | 2022-02-01 06:53 | NUR ---
Patient in room ORTHO 4022. I have received report from Winifred RN and had the opportunity to ask questions and assume patient care.
[2022-02-01 07:39] LABS: BASOPHILS # (AUTO) 0.1 X10'3 (0-0.2); BASOPHILS % (AUTO) 0.5 % (0-1); EOSINOPHILS # (AUTO) 0.8 X10'3 (0-0.9); EOSINOPHILS % (AUTO) 5.6 % (0-6); HEMATOCRIT 32.1 % (42.0-52.0); HEMOGLOBIN 10.7 g/dl (14.0-17.9); LYMPHOCYTES # (AUTO) 1.5 X10'3 (1.1-4.8); LYMPHOCYTES % (AUTO) 10.6 % (21-51); MEAN CORPUSCULAR HEMOGLOBIN 32.5 PG (27.0-31.0); MEAN CORPUSCULAR HGB CONC 33.3 g/dL (33.0-36.5); MEAN CORPUSCULAR VOLUME 97.5 FL (78-98); MEAN PLATELET VOLUME 6.8 FL (7.4-10.4); MONOCYTES # (AUTO) 2.2 X10'3 (0-0.9); MONOCYTES % (AUTO) 15.4 % (2-12); NEUTROPHILS # (AUTO) 9.8 X10'3 (1.8-7.7); NEUTROPHILS % (AUTO) 67.9 % (42-75); PLATELET COUNT 495 X10'3 (140-440); RED BLOOD COUNT 3.29 X10'6 (4.70-6.10); RED CELL DISTRIBUTION WIDTH 14.1 % (11.5-14.5); WHITE BLOOD COUNT 14.5 X10'3 (4.5-11.0)
[2022-02-01] MEDS: aspirin 81mg, enteric-coated 1 TAB TABLET.DR PO SCH (07:49)
[2022-02-01] MEDS: cefepime 1GM/NS ADD-VANTAGE 100 ML IV SCH ×2 (07:50→19:31)
[2022-02-01] MEDS: heparin, porcine 5000 units/ml vial SQ SCH ×4 (07:50→23:39)
[2022-02-01 07:57] LABS: ALANINE AMINOTRANSFERASE 22 U/L (12-78); ALBUMIN 1.9 G/DL (3.4-5.0); ALBUMIN/GLOBULIN RATIO 0.5 (1.1-1.5); ALKALINE PHOSPHATASE 70 IU/L (46-116); ANION GAP 6 (8-16); ASPARTATE AMINO TRANSFERASE 21 U/L (10-37); BILIRUBIN,TOTAL 0.3 MG/DL (0.1-1.0); BLOOD UREA NITROGEN 8 MG/DL (7-18); BUN/CREATININE RATIO 10.4 (5.4-32.0); CALCIUM 8.1 MG/DL (8.5-10.1); CHLORIDE 107 MMOL/L (99-107); CREATININE 0.77 MG/DL (0.60-1.10); GLUCOSE 98 MG/DL (70-104); POTASSIUM 4.1 MMOL/L (3.5-5.1); SODIUM 140 MMOL/L (135-145); TOTAL CARBON DIOXIDE 27.5 MMOL/L (24-32); eGFR > 90 ML/MIN
[2022-02-01] MEDS: K and/or MAG REPLACEMENT MC SCH ×2 (08:00→20:00)
[2022-02-01 10:00] VITALS: BP 130/71
[2022-02-01] MEDS: HYDROmorphone inj. 0.5 MG/0.5 ML DISP.SYRIN IV PRN (11:46)
--- NOTE | 2022-02-01 12:04 | NUR ---
Reassessment; Pt continues on Heart Healthy diet w/ mostly 100% intake of meals meeting est needs at this time. Recommend liberalizing to Regular diet. LBM 01/31. No change to recommendations at this time, will continue to monitor.. Recommendations: 1) Liberalize to regular diet 2) Monitor need for ONS/additional protein 3) Routine bowel care and prokinetic agent per physician 4) Scaled weight this admit; subsequent weekly scaled weights Addendum: 02/01/22 at [address] Amended: Links added.
--- NOTE | 2022-02-01 17:33 | NUR ---
Changed Dressing:Cleansed left knee with NS, dried applied therahoney, alginate to wound, covered with 4x4 gauze and tape. [id number] had minimal serous drainage upon removal. New dressing clean, dry intact.
--- NOTE | 2022-02-01 18:06 | NUR ---
orientee documentation: I have reviewed and agree with all interventions, assessments performed and documented by chante SCOTT.
--- NOTE | 2022-02-01 18:22 | NUR ---
Problems reprioritized. Patient report given, questions answered & plan of care reviewed with Winifred SCOTT.
[2022-02-01 18:55] VITALS: BP 122/73
[2022-02-01 22:00] VITALS: BP 137/77
[2022-02-02 06:00] VITALS: BP 121/74
[2022-02-02] MEDS: K and/or MAG REPLACEMENT MC SCH ×2 (08:00→20:00)
[2022-02-02] MEDS: HYDROcodone/acetaminophen 10/325mg tab PO PRN ×4 (08:05→21:23)
[2022-02-02] MEDS: aspirin 81mg, enteric-coated 1 TAB TABLET.DR PO SCH (08:05)
[2022-02-02] MEDS: cefepime 1GM/NS ADD-VANTAGE 100 ML IV SCH ×2 (08:27→21:17)
[2022-02-02] MEDS: heparin, porcine 5000 units/ml vial SQ SCH ×3 (08:32→23:21)
[2022-02-02 09:32] LABS: BASOPHILS # (AUTO) 0.1 X10'3 (0-0.2); BASOPHILS % (AUTO) 0.4 % (0-1); EOSINOPHILS # (AUTO) 0.8 X10'3 (0-0.9); EOSINOPHILS % (AUTO) 5.2 % (0-6); HEMATOCRIT 32.2 % (42.0-52.0); HEMOGLOBIN 10.7 g/dl (14.0-17.9); LYMPHOCYTES # (AUTO) 1.1 X10'3 (1.1-4.8); LYMPHOCYTES % (AUTO) 7.5 % (21-51); MEAN CORPUSCULAR HEMOGLOBIN 32.1 PG (27.0-31.0); MEAN CORPUSCULAR HGB CONC 33.2 g/dL (33.0-36.5); MEAN CORPUSCULAR VOLUME 96.8 FL (78-98); MEAN PLATELET VOLUME 6.5 FL (7.4-10.4); MONOCYTES # (AUTO) 1.8 X10'3 (0-0.9); MONOCYTES % (AUTO) 12.7 % (2-12); NEUTROPHILS # (AUTO) 10.8 X10'3 (1.8-7.7); NEUTROPHILS % (AUTO) 74.2 % (42-75); PLATELET COUNT 512 X10'3 (140-440); RED BLOOD COUNT 3.33 X10'6 (4.70-6.10); RED CELL DISTRIBUTION WIDTH 14.3 % (11.5-14.5); WHITE BLOOD COUNT 14.5 X10'3 (4.5-11.0)
[2022-02-02 09:50] LABS: ALANINE AMINOTRANSFERASE 30 U/L (12-78); ALBUMIN 1.8 G/DL (3.4-5.0); ALBUMIN/GLOBULIN RATIO 0.4 (1.1-1.5); ALKALINE PHOSPHATASE 91 IU/L (46-116); ANION GAP 5 (8-16); ASPARTATE AMINO TRANSFERASE 36 U/L (10-37); BILIRUBIN,TOTAL 0.2 MG/DL (0.1-1.0); BLOOD UREA NITROGEN 9 MG/DL (7-18); BUN/CREATININE RATIO 12.7 (5.4-32.0); CHLORIDE 104 MMOL/L (99-107); CREATININE 0.71 MG/DL (0.60-1.10); GLUCOSE 144 MG/DL (70-104); SODIUM 137 MMOL/L (135-145); TOTAL CARBON DIOXIDE 27.8 MMOL/L (24-32); eGFR > 90 ML/MIN
[2022-02-02 10:00] VITALS: BP 124/67
--- NOTE | 2022-02-02 10:24 | NUR ---
2000mls, plus in the commade left overnight and from this am. Addendum: 02/02/22 at 1054 by Za Wilson RN Amended: Links added.
--- NOTE | 2022-02-02 10:38 | NUR ---
patient empties urinal into bedside commade. Addendum: 02/02/22 at 1054 by Za Wilson RN Amended: Links added.
[2022-02-02] MEDS: normal saline 1000ml 1,000 ML IV SCH ×2 (12:32→21:20)
[2022-02-02] MEDS: VANCOMYCIN 1,500MG in normal saline IV soln 300 ML IV SCH ×2 (12:32→23:20)
[2022-02-02 18:00] VITALS: BP 112/58
--- NOTE | 2022-02-02 18:51 | NUR ---
Report to Nessa SCOTT
[2022-02-02 22:00] VITALS: BP 112/60
[2022-02-03] MEDS: HYDROcodone/acetaminophen 10/325mg tab PO PRN ×4 (05:39→20:24)
[2022-02-03] MEDS: normal saline 1000ml 1,000 ML IV SCH ×3 (05:40→21:20)
[2022-02-03 06:00] VITALS: BP 126/72
--- NOTE | 2022-02-03 06:25 | NUR ---
Problems reprioritized. Patient report given, questions answered & plan of care reviewed with SONIA Rodriguez.
--- NOTE | 2022-02-03 06:39 | NUR ---
Patient in room ORTHO 4022. I have received report from SONIA Szymanski and had the opportunity to ask questions and assume patient care.
[2022-02-03] MEDS: K and/or MAG REPLACEMENT MC SCH ×2 (08:00→20:00)
[2022-02-03] MEDS: cefepime 1GM/NS ADD-VANTAGE 100 ML IV SCH ×2 (08:18→16:39)
[2022-02-03] MEDS: heparin, porcine 5000 units/ml vial SQ SCH ×3 (08:19→23:58)
[2022-02-03] MEDS: aspirin 81mg, enteric-coated 1 TAB TABLET.DR PO SCH (08:19)
[2022-02-03 10:00] VITALS: BP 100/64
[2022-02-03] MEDS: VANCOMYCIN 1,500MG in normal saline IV soln 300 ML IV SCH ×2 (11:34→22:49)
[2022-02-03 11:37] LABS: BASOPHILS # (AUTO) 0.1 X10'3 (0-0.2); BASOPHILS % (AUTO) 0.4 % (0-1); EOSINOPHILS # (AUTO) 0.6 X10'3 (0-0.9); EOSINOPHILS % (AUTO) 4.6 % (0-6); HEMATOCRIT 31.6 % (42.0-52.0); HEMOGLOBIN 10.4 g/dl (14.0-17.9); MONOCYTES # (AUTO) 2.3 X10'3 (0-0.9); RED BLOOD COUNT 3.24 X10'6 (4.70-6.10); WHITE BLOOD COUNT 13.3 X10'3 (4.5-11.0)
[2022-02-03 11:39] LABS: LYMPHOCYTES # (AUTO) 1.3 X10'3 (1.1-4.8); LYMPHOCYTES % (AUTO) 10.1 % (21-51); MEAN CORPUSCULAR HEMOGLOBIN 32.2 PG (27.0-31.0); MEAN CORPUSCULAR HGB CONC 33.1 g/dL (33.0-36.5); MEAN CORPUSCULAR VOLUME 97.4 FL (78-98); MEAN PLATELET VOLUME 6.5 FL (7.4-10.4); MONOCYTES % (AUTO) 17.4 % (2-12); NEUTROPHILS % (AUTO) 67.5 % (42-75); PLATELET COUNT 589 X10'3 (140-440); RED CELL DISTRIBUTION WIDTH 14.2 % (11.5-14.5)
[2022-02-03 11:46] LABS: ALANINE AMINOTRANSFERASE 30 U/L (12-78); ALBUMIN/GLOBULIN RATIO 0.5 (1.1-1.5); ALKALINE PHOSPHATASE 104 IU/L (46-116); ANION GAP 5 (8-16); ASPARTATE AMINO TRANSFERASE 29 U/L (10-37); BILIRUBIN,TOTAL 0.2 MG/DL (0.1-1.0); BLOOD UREA NITROGEN 9 MG/DL (7-18); BUN/CREATININE RATIO 12.3 (5.4-32.0); CALCIUM 8.4 MG/DL (8.5-10.1); CHLORIDE 104 MMOL/L (99-107); CREATININE 0.73 MG/DL (0.60-1.10); GLUCOSE 81 MG/DL (70-104); POTASSIUM 4.1 MMOL/L (3.5-5.1); SODIUM 138 MMOL/L (135-145); TOTAL CARBON DIOXIDE 28.8 MMOL/L (24-32); TOTAL PROTEIN 6.3 G/DL (6.4-8.2); eGFR > 90 ML/MIN
--- NOTE | 2022-02-03 14:19 | NUR ---
Patient attempted to take himself to the bathroom and stretched the wound vac to the point that it was not sealed any more. Called Dr. Landeros for orders on how to deal with that and he ordered the wound vac to be removed. Put order in miscellaneous nursing orders.
[2022-02-03 18:00] VITALS: BP 123/54
--- NOTE | 2022-02-03 18:30 | NUR ---
Patient in room ORTHO 4022. I have received report from Jennifer SCOTT and had the opportunity to ask questions and assume patient care.
--- NOTE | 2022-02-03 18:45 | NUR ---
Problems reprioritized. Patient report given, questions answered & plan of care reviewed with ANDERS rPabhakar.
[2022-02-03 22:00] VITALS: BP 106/58
[2022-02-04] VITALS (19 sets, daily range): BP systolic 89–130; BP diastolic 37–73
[2022-02-04] MEDS: cefepime 1GM/NS ADD-VANTAGE 100 ML IV SCH ×3 (01:02→16:12)
[2022-02-04] MEDS: HYDROcodone/acetaminophen 10/325mg tab PO PRN ×5 (01:19→22:51)
--- NOTE | 2022-02-04 01:56 | NUR ---
Agree with Vanna DESIGN MAKER physical assessment.
[2022-02-04] MEDS: normal saline 1000ml 1,000 ML IV SCH ×2 (03:52→13:20)
--- NOTE | 2022-02-04 06:12 | NUR ---
Problems reprioritized. Patient report given, questions answered & plan of care reviewed with Jennifer SCOTT.
--- NOTE | 2022-02-04 06:30 | NUR ---
Patient in room ORTHO 4022. I have received report from ANDERS Prabhakar and had the opportunity to ask questions and assume patient care.
[2022-02-04] MEDS: K and/or MAG REPLACEMENT MC SCH ×2 (07:43→20:00)
[2022-02-04] MEDS: heparin, porcine 5000 units/ml vial SQ SCH ×2 (07:44→15:58)
[2022-02-04] MEDS: aspirin 81mg, enteric-coated 1 TAB TABLET.DR PO SCH (07:44)
[2022-02-04 10:06] LABS: BASOPHILS # (AUTO) 0.1 X10'3 (0-0.2); BASOPHILS % (AUTO) 0.5 % (0-1); EOSINOPHILS # (AUTO) 0.6 X10'3 (0-0.9); EOSINOPHILS % (AUTO) 5.2 % (0-6); HEMATOCRIT 30.8 % (42.0-52.0); HEMOGLOBIN 10.7 g/dl (14.0-17.9); LYMPHOCYTES # (AUTO) 1.5 X10'3 (1.1-4.8); LYMPHOCYTES % (AUTO) 13.6 % (21-51); MEAN CORPUSCULAR HEMOGLOBIN 33.7 PG (27.0-31.0); MEAN CORPUSCULAR HGB CONC 34.7 g/dL (33.0-36.5); MEAN CORPUSCULAR VOLUME 97.1 FL (78-98); MEAN PLATELET VOLUME 6.5 FL (7.4-10.4); MONOCYTES # (AUTO) 1.8 X10'3 (0-0.9); MONOCYTES % (AUTO) 16.2 % (2-12); NEUTROPHILS % (AUTO) 64.5 % (42-75); PLATELET COUNT 589 X10'3 (140-440); RED BLOOD COUNT 3.17 X10'6 (4.70-6.10); RED CELL DISTRIBUTION WIDTH 14.1 % (11.5-14.5); WHITE BLOOD COUNT 10.9 X10'3 (4.5-11.0)
[2022-02-04 10:07] LABS: ALBUMIN 2.1 G/DL (3.4-5.0); ANION GAP 7 (8-16); BLOOD UREA NITROGEN 9 MG/DL (7-18); BUN/CREATININE RATIO 12.2 (5.4-32.0); CALCIUM 8.2 MG/DL (8.5-10.1); CHLORIDE 103 MMOL/L (99-107); CREATININE 0.74 MG/DL (0.60-1.10); GLUCOSE 90 MG/DL (70-104); POTASSIUM 3.8 MMOL/L (3.5-5.1); SODIUM 138 MMOL/L (135-145); TOTAL CARBON DIOXIDE 28.4 MMOL/L (24-32); eGFR > 90 ML/MIN
[2022-02-04] MEDS ORDERED: VANCOMYCIN LEVEL IV ONE (10:30)
--- NOTE | 2022-02-04 11:08 | NUR ---
PAGER ID: [phone] MESSAGE: Jennifer [phone] RE: Lazaro Jane room 4022A - [facility].0
[2022-02-04] MEDS ORDERED: ceFAZolin inj. 2,000 MG in dextrose 5%-water 50 ML IV ONE (12:00)
[2022-02-04] MEDS ORDERED: bacitracin 15gm ointment TP ONE (13:00)
[2022-02-04] MEDS ORDERED: BUPIVAcaine/PF 2.5 mg/ml (0.25%) 30ml vial ONE (13:00)
[2022-02-04] MEDS ORDERED: midazolam 1 mg/ML 2ml injection ONE (13:00)
[2022-02-04] MEDS ORDERED: fentaNYL/PF 50MCG/1 ML 2ML syringe ONE (13:00)
[2022-02-04] MEDS ORDERED: LIDOcaine 2% (20mg/ml) 5ml vial ONE (13:01)
[2022-02-04] MEDS ORDERED: ondansetron/PF 4mg/2ml inj ONE (13:01)
[2022-02-04] MEDS ORDERED: fentaNYL/PF 50MCG/1 ML 2ML syringe IV PRN ×2 (13:05)
[2022-02-04] MEDS ORDERED: ondansetron/PF 4mg/2ml inj IV PRN (13:05)
[2022-02-04] MEDS ORDERED: ringers solution, lacted 1,000 ML IV SCH (13:05)
[2022-02-04] MEDS ORDERED: labetalol 20mg/4ml (5mg/ml) syringe IV PRN (13:05)
[2022-02-04] MEDS ORDERED: hydrALAZINE 20mg/ml inj. IV PRN (13:05)
[2022-02-04] MEDS ORDERED: morphine 2 MG/ML inj. syringe IV PRN (13:05)
[2022-02-04] MEDS ORDERED: morphine 4 MG/ML inj SYRINge IV PRN (13:05)
[2022-02-04] MEDS ORDERED: dexamethasone sod phosphate 4mg/ml inj. ONE (13:22)
[2022-02-04] MEDS ORDERED: ROPIVAcaine 0.5% (5mg/ml) 30ml vial ONE (14:01)
--- NOTE | 2022-02-04 14:14 | NUR ---
Received from OR via HOSPITAL BED , accompanied by Anesthesiologist DR PINEDO and report given by Anesthesiolgist. PT PRESENTS WITH PIV 20G RIGHT UPPER ARM/BICEP. DRESSING ON LEFT FFOR CDI, WEDGE PLACED UNDER PT LEFT LEG, CAM BOOT ORDERED BY [id number]. VSS. Addendum: 02/04/22 at 1425 by Isa Rankin RN, RN Amended: Links added.
--- NOTE | 2022-02-04 15:04 | NUR ---
Report called to receiving nurse HANNY SCOTT. Transferred via HOSPITAL BED TO ROOM 4022A. BED IN LOW LOCKED POSTION WITH CALL LIGHT IN REACH AND PT HOOKED UP TO eOriginal MACHINE. Belongings LEFT IN PT ROOM. Special Issues communicated to receiving nurse. Addendum: 02/04/22 at 1511 by Isa Rankin RN RN Amended: Links added.
--- NOTE | 2022-02-04 18:30 | NUR ---
Patient in room ORTHO 4022. I have received report from Jennifer SCOTT and had the opportunity to ask questions and assume patient care.
--- NOTE | 2022-02-04 18:39 | NUR ---
Problems reprioritized. Patient report given, questions answered & plan of care reviewed with SONIA Razo.
[2022-02-04] MEDS: vancomycin/NS 1 GM ADD-VANTAGE 250 ML IV SCH (22:50)
[2022-02-05] MEDS: cefepime 1GM/NS ADD-VANTAGE 100 ML IV SCH ×3 (00:31→15:33)
[2022-02-05 02:00] VITALS: BP 111/57
[2022-02-05] MEDS: normal saline 1000ml 1,000 ML IV SCH ×2 (02:03→05:20)
--- NOTE | 2022-02-05 03:17 | NUR ---
Student documentation: I have reviewed and agree with all interventions, assessments performed and documented by Carrington Heard Student nurse.
--- NOTE | 2022-02-05 03:18 | NUR ---
Student Medication Administration: For this medication-pass time frame, all medication were reviewed, dispensed, administered and documented per hospital policy by Carrington Sharif.
[2022-02-05] MEDS: HYDROcodone/acetaminophen 10/325mg tab PO PRN ×5 (04:30→19:55)
[2022-02-05] MEDS: heparin, porcine 5000 units/ml vial SQ SCH ×3 (04:51→19:54)
[2022-02-05 06:00] VITALS: BP 112/61
--- NOTE | 2022-02-05 06:47 | NUR ---
Problems reprioritized. Patient report given, questions answered & plan of care reviewed with Jennifer SCOTT.
--- NOTE | 2022-02-05 06:54 | NUR ---
Patient in room ORTHO 4022. I have received report from SONIA Razo and had the opportunity to ask questions and assume patient care.
[2022-02-05] MEDS: K and/or MAG REPLACEMENT MC SCH ×2 (08:00→19:47)
[2022-02-05] MEDS: aspirin 81mg, enteric-coated 1 TAB TABLET.DR PO SCH (08:24)
[2022-02-05 10:00] VITALS: BP 121/63
[2022-02-05] MEDS: HYDROmorphone inj. 0.5 MG/0.5 ML DISP.SYRIN IV PRN (10:08)
[2022-02-05] MEDS ORDERED: povidone-iodine 120ml topical solution TP ONE (10:50)
[2022-02-05] MEDS: vancomycin/NS 1 GM ADD-VANTAGE 250 ML IV SCH ×2 (12:09→23:25)
[2022-02-05 18:00] VITALS: BP 125/62
--- NOTE | 2022-02-05 18:53 | NUR ---
Problems reprioritized. Patient report given, questions answered & plan of care reviewed with SONIA Rangel.
[2022-02-05] MEDS: sennosides/docusate sodium tablet PO SCH (19:53)
[2022-02-05] MEDS: docusate sod 100mg capsule PO SCH (19:53)
[2022-02-05 22:00] VITALS: BP 98/59
[2022-02-06] MEDS: cefepime 1GM/NS ADD-VANTAGE 100 ML IV SCH ×3 (00:29→16:49)
[2022-02-06] MEDS: HYDROcodone/acetaminophen 10/325mg tab PO PRN ×5 (00:29→21:29)
[2022-02-06] MEDS: HYDROmorphone inj. 0.5 MG/0.5 ML DISP.SYRIN IV PRN ×2 (04:02→18:58)
--- NOTE | 2022-02-06 04:57 | NUR ---
reviewed and agree with SRN assessment findings
[2022-02-06] MEDS: heparin, porcine 5000 units/ml vial SQ SCH ×3 (05:02→20:36)
[2022-02-06 06:00] VITALS: BP 120/70
--- NOTE | 2022-02-06 06:15 | NUR ---
Patient in room ORTHO 4022. I have received report from Claire/Dari and had the opportunity to ask questions and assume patient care.
--- NOTE | 2022-02-06 06:32 | NUR ---
Problems reprioritized. Patient report given, questions answered & plan of care reviewed with SONIA Eldridge.
[2022-02-06] MEDS: K and/or MAG REPLACEMENT MC SCH ×2 (08:00→19:37)
--- NOTE | 2022-02-06 08:17 | NUR ---
Reassessment; Pt continues on Heart Healthy diet w/ mostly 100% intake of meals meeting est needs at this time. Recommend liberalizing to Regular diet. LBM 02/05. No change to recommendations at this time, will continue to monitor. Recommendations: 1) Liberalize to regular diet 2) Monitor need for ONS/additional protein 3) Bowel care per rx 4) Scaled weight this admit; subsequent weekly scaled weights Addendum: 02/06/22 at [address] Amended: Links added.
[2022-02-06] MEDS: docusate sod 100mg capsule PO SCH ×2 (08:29→20:36)
[2022-02-06] MEDS: aspirin 81mg, enteric-coated 1 TAB TABLET.DR PO SCH (08:29)
--- NOTE | 2022-02-06 09:45 | NUR ---
Call from lab, MRSA positive in the left foot wound.
--- NOTE | 2022-02-06 09:58 | NUR ---
PAGER ID: [phone] MESSAGE: RE: Buck in 4022A MRSA positive in left foot wound, just alex Eldridge [phone]
[2022-02-06 10:00] VITALS: BP 124/65
[2022-02-06] MEDS ORDERED: VANCOMYCIN LEVEL IV ONE (10:30)
[2022-02-06] MEDS: vancomycin/NS 1 GM ADD-VANTAGE 250 ML IV SCH ×2 (11:29→23:03)
[2022-02-06 18:00] VITALS: BP 113/55
--- NOTE | 2022-02-06 18:25 | NUR ---
Problems reprioritized. Patient report given, questions answered & plan of care reviewed with Claire Rodgers.
[2022-02-06] MEDS: sennosides/docusate sodium tablet PO SCH (20:37)
[2022-02-06 22:00] VITALS: BP 119/61
[2022-02-07] MEDS: cefepime 1GM/NS ADD-VANTAGE 100 ML IV SCH (00:23)
--- NOTE | 2022-02-07 02:01 | NUR ---
Student documentation: I have reviewed and agree with all interventions, assessments performed and documented by PARAM Chapin.
[2022-02-07] MEDS: HYDROcodone/acetaminophen 10/325mg tab PO PRN ×5 (02:27→23:37)
[2022-02-07] MEDS: heparin, porcine 5000 units/ml vial SQ SCH ×3 (04:50→20:01)
[2022-02-07 06:00] VITALS: BP 127/59
--- NOTE | 2022-02-07 06:30 | NUR ---
Patient in room ORTHO 4022. I have received report from Claire SCOTT and had the opportunity to ask questions and assume patient care.
[2022-02-07] MEDS: K and/or MAG REPLACEMENT MC SCH ×2 (08:00→19:10)
[2022-02-07] MEDS: DOXYCYCLINE 100MG CAPSULE PO SCH ×2 (08:10→18:00)
[2022-02-07] MEDS: docusate sod 100mg capsule PO SCH ×2 (08:10→20:00)
[2022-02-07] MEDS: aspirin 81mg, enteric-coated 1 TAB TABLET.DR PO SCH (08:10)
[2022-02-07 10:00] VITALS: BP 118/57
--- NOTE | 2022-02-07 15:51 | NUR ---
Agree with Delaney MCNAMARA and added my own assessment findings.
[2022-02-07 18:00] VITALS: BP 128/72
--- NOTE | 2022-02-07 18:31 | NUR ---
Problems reprioritized. Patient report given, questions answered & plan of care reviewed with Claire SCOTT.
[2022-02-07] MEDS: sennosides/docusate sodium tablet PO SCH (20:00)
[2022-02-07 22:00] VITALS: BP 107/63
[2022-02-08] MEDS: HYDROcodone/acetaminophen 10/325mg tab PO PRN ×2 (03:41→08:45)
[2022-02-08] MEDS: heparin, porcine 5000 units/ml vial SQ SCH (05:04)
[2022-02-08 06:00] VITALS: BP 103/51
[2022-02-08 06:02] LABS: BASOPHILS # (AUTO) 0.1 X10'3 (0-0.2); BASOPHILS % (AUTO) 1.4 % (0-1); EOSINOPHILS # (AUTO) 0.6 X10'3 (0-0.9); EOSINOPHILS % (AUTO) 6.2 % (0-6); HEMATOCRIT 31.1 % (42.0-52.0); HEMOGLOBIN 10.6 g/dl (14.0-17.9); LYMPHOCYTES # (AUTO) 1.7 X10'3 (1.1-4.8); LYMPHOCYTES % (AUTO) 15.9 % (21-51); MEAN CORPUSCULAR HEMOGLOBIN 33.2 PG (27.0-31.0); MEAN CORPUSCULAR VOLUME 97.5 FL (78-98); MEAN PLATELET VOLUME 6.9 FL (7.4-10.4); MONOCYTES # (AUTO) 1.8 X10'3 (0-0.9); MONOCYTES % (AUTO) 17.4 % (2-12); NEUTROPHILS # (AUTO) 6.2 X10'3 (1.8-7.7); NEUTROPHILS % (AUTO) 59.1 % (42-75); PLATELET COUNT 643 X10'3 (140-440); RED BLOOD COUNT 3.19 X10'6 (4.70-6.10); RED CELL DISTRIBUTION WIDTH 14.2 % (11.5-14.5); WHITE BLOOD COUNT 10.4 X10'3 (4.5-11.0)
[2022-02-08 06:08] LABS: ALANINE AMINOTRANSFERASE 51 U/L (12-78); ALBUMIN 2.3 G/DL (3.4-5.0); ALBUMIN/GLOBULIN RATIO 0.5 (1.1-1.5); ALKALINE PHOSPHATASE 112 IU/L (46-116); ANION GAP 6 (8-16); ASPARTATE AMINO TRANSFERASE 42 U/L (10-37); BILIRUBIN,TOTAL 0.2 MG/DL (0.1-1.0); BLOOD UREA NITROGEN 16 MG/DL (7-18); BUN/CREATININE RATIO 19.5 (5.4-32.0); CALCIUM 8.6 MG/DL (8.5-10.1); CHLORIDE 102 MMOL/L (99-107); CREATININE 0.82 MG/DL (0.60-1.10); GLUCOSE 113 MG/DL (70-104); POTASSIUM 4.2 MMOL/L (3.5-5.1); SODIUM 134 MMOL/L (135-145); TOTAL CARBON DIOXIDE 25.9 MMOL/L (24-32); TOTAL PROTEIN 6.8 G/DL (6.4-8.2); eGFR > 90 ML/MIN
--- NOTE | 2022-02-08 06:53 | NUR ---
Patient in room ORTHO 4022. I have received report from SONIA Rangel and had the opportunity to ask questions and assume patient care.
[2022-02-08 08:00] VITALS: BP 109/66
[2022-02-08] MEDS: K and/or MAG REPLACEMENT MC SCH (08:00)
[2022-02-08] MEDS ORDERED: HYDR-3972 PO (08:34)
[2022-02-08] MEDS ORDERED: DOXY-224 PO (08:34)
[2022-02-08] MEDS: DOXYCYCLINE 100MG CAPSULE PO SCH (08:44)
[2022-02-08] MEDS: aspirin 81mg, enteric-coated 1 TAB TABLET.DR PO SCH (08:44)
[2022-02-08] MEDS: docusate sod 100mg capsule PO SCH (08:44)
[2022-02-08 10:00] VITALS: BP 104/63
--- NOTE | 2022-02-08 12:50 | NUR ---
Patient discharge home with family. Discharge information was review with patient, whom verbalize understanding. Staff assisted patient to personal vehicle with all belongings.
--- NOTE | 2022-02-08 15:01 | NUR ---
Student documentation: I have reviewed and agree with all interventions, assessments performed and documented by Love PRADO student.
--- NOTE | 2022-02-08 16:19 | NUR ---
late entry: I agree with Tania MCNAMARA, assessment and made changes of my own.
== END 2022-02-08 12:50 | disposition home health service (06) | DRG 270 ==
LOC: ER 14:00 → ED HOLD 20:47 → ORTHO 4S 01-25 17:20 → ICU 2S 01-27 14:34 → ORTHO 4S 01-29 15:51
PROVIDERS: ADMIT Internal Medicine; ATTEND Family Medicine
PROC: B4201ZZ Computerized Tomography (CT Scan) of Abdominal Aorta using Low Osmolar Contrast (ICD-10-PCS; 2022-01-25)
PROC: B4241ZZ Computerized Tomography (CT Scan) of Superior Mesenteric Artery using Low Osmolar Contrast (ICD-10-PCS; 2022-01-25)
PROC: B4281ZZ Computerized Tomography (CT Scan) of Bilateral Renal Arteries using Low Osmolar Contrast (ICD-10-PCS; 2022-01-25)
PROC: B42C1ZZ Computerized Tomography (CT Scan) of Pelvic Arteries using Low Osmolar Contrast (ICD-10-PCS; 2022-01-25)
PROC: B42H1ZZ Computerized Tomography (CT Scan) of Bilateral Lower Extremity Arteries using Low Osmolar Contrast (ICD-10-PCS; 2022-01-25)
PROC: B4211ZZ Computerized Tomography (CT Scan) of Celiac Artery using Low Osmolar Contrast (ICD-10-PCS; 2022-01-25)
PROC: 4A02XM4 Measurement of Cardiac Total Activity, External Approach (ICD-10-PCS; 2022-01-26)
PROC: 3E033HZ Introduction of Radioactive Substance into Peripheral Vein, Percutaneous Approach (ICD-10-PCS; 2022-01-26)
PROC: 04CL0ZZ Extirpation of Matter from Left Femoral Artery, Open Approach (ICD-10-PCS; 2022-01-27)
PROC: 041N0JQ Bypass Left Popliteal Artery to Lower Extremity Artery with Synthetic Substitute, Open Approach (ICD-10-PCS; 2022-01-27)
PROC: 3E0T3BZ Introduction of Anesthetic Agent into Peripheral Nerves and Plexi, Percutaneous Approach (ICD-10-PCS; 2022-01-27)
PROC: 3E0T33Z Introduction of Anti-inflammatory into Peripheral Nerves and Plexi, Percutaneous Approach (ICD-10-PCS; 2022-01-27)
PROC: 04100JJ Bypass Abdominal Aorta to Left Femoral Artery with Synthetic Substitute, Open Approach (ICD-10-PCS; principal; 2022-01-27 13:02)
PROC: 0Y6N0Z9 Detachment at Left Foot, Partial 1st Ray, Open Approach (ICD-10-PCS; 2022-02-04)
PROC: 0Y6N0ZB Detachment at Left Foot, Partial 2nd Ray, Open Approach (ICD-10-PCS; 2022-02-04)
PROC: 0Y6N0ZC Detachment at Left Foot, Partial 3rd Ray, Open Approach (ICD-10-PCS; 2022-02-04)
PROC: 0Y6N0ZD Detachment at Left Foot, Partial 4th Ray, Open Approach (ICD-10-PCS; 2022-02-04)
PROC: 0Y6N0ZF Detachment at Left Foot, Partial 5th Ray, Open Approach (ICD-10-PCS; 2022-02-04)
DX: I70.262 Atherosclerosis of native arteries of extremities with gangrene, left leg (principal); E43 Unspecified severe protein-calorie malnutrition; I42.9 Cardiomyopathy, unspecified; L03.116 Cellulitis of left lower limb; F17.210 Nicotine dependence, cigarettes, uncomplicated; Z20.822 Contact with and (suspected) exposure to COVID-19; G89.29 Other chronic pain; I10 Essential (primary) hypertension; K59.00 Constipation, unspecified; Z59.00 Homelessness unspecified; Z68.25 Body mass index [BMI] 25.0-25.9, adult; Z79.899 Other long term (current) drug therapy; Z71.6 Tobacco abuse counseling
CPT/HCPCS: 36415; 71045; 73630; 74018; 75635; 78452; 80047; 80048; 80053; 80061; 80202; 82948; 83036; 83605; 83735; 84132; 84145; 85007; 85025; 85610; 85651; 85730; 86140; 86885; 86900; 86901; 86920; 87040; 87070; 87077; 87081; 87186; 87811; 93005; 93017; 93306; 93926; 93971; 96365; 96368; 96375; 97110; 97116; 97161; 97530; 99285; A4615; A4618; A4649; A6196; A6223; A6253; A6258; A6402; A6446; A6449; A6455; A7000; A7526; A9500; C1758; C1768; C9290; G0378; J0690; J0692; J0696; J1100; J1170; J1644; J2250; J2270; J2274; J2370; J2405; J2704; J2710; J2765; J2785; J2795; J3010; J3370; J3490; J7030; J7040; J7050; J7060; J7120; L4360; Q9967